=== PATIENT | male | born 1930 | race Caucasian/White ===

== ENCOUNTER 2018-04-24 21:24 | Inpatient (IN) | payer MEDICARE ==
[2018-04-24 21:45] LABS: Base Excess-Venous -8.2 mmol/L (0 (+/- 2.5)); Bicarbonate (HCO3v) 15.5 mmol/L (1.0-85.0); CO2 Tension (PvCO2) 28.8 mmHg (41.0-51.0); Hemoglobin - Calc 20.7 g/dL (12.0-18.0); Lactate 10.44 mmol/L (0.50-2.20); O2 Tension (PvO2) 66.3 mmHg (35.0-45.0); Potassium 3.6 mmol/L (3.4-4.7); T. Carbon Dioxide 16.4 mmol/L (1.0-85.0); pH (Venous) 7.339 (7.35-7.45)
[2018-04-24 21:48] LABS: Hemoglobin 19.5 g/dL (14.0-18.0); Mean Corpuscular HGB CONC 34.7 g/dL (32.0-36.0); Mean Corpuscular Hemoglobin 33.8 pg (27.0-31.0); Mean Corpuscular Volume 97.6 fL (78.0-98.0); Mean Platelet Volume 9.4 fL (7.4-10.4); Platelet Count 137 thou/uL (130-400); RBC Distribution Width 13.1 % (11.5-14.5); Red Blood Cell (RBC) Count 5.76 mill/uL (4.70-6.10)
[2018-04-24 21:51] LABS: Bilirubin Negative (Negative); Blood, Urine Moderate (Negative); Clarity CLEAR (Clear); Glucose, Urine (Dipstick) Negative (Negative); Leukocyte Negative (Negative); Nitrite Negative (Negative); Protein, Urine (Dipstick) Negative (Neg-Trace); Specific Gravity, Urine 1.006 (1.002-1.036); Urobilinogen 0.2 mg/dL (0.2-1.0); pH, Urine 7.5 (5.0-9.0)
[2018-04-24 21:52] LABS: Bacteria/HPF None Seen HPF (None Seen); Hyaline Casts/LPF 4-6 HYALINE CAST LPF (0-3 Hyaline); Pathc Cast-AUWi Flag 0.87 (0-2.49); Squamous Epithelial 0-3 HPF (0-3); WBC/HPF 0-3 HPF (0-3)
[2018-04-24 21:55] LABS: INR-International Normal Ratio 1.1; PTT 26.6 SEC (22.9-36.1); Prothrombin Time 14.1 SEC (12.0-14.7)
[2018-04-24 22:00] LABS: ALT (SGPT) 25 U/L (8-55); AST (SGOT) 35 U/L (5-34); Albumin 4.7 g/dL (3.4-4.8); Alkaline Phosphatase 86 U/L (40-150); Anion Gap 25 mmol/L (10-20); BUN (Urea Nitrogen) 22 mg/dL (8.4-25.7); Bilirubin, Total 1.1 mg/dL (0.2-1.2); Calc. Creatinine Clearance 0 mL/min (70-130); Calcium 9.3 mg/dL (7.8-10.44); Carbon Dioxide 13 mmol/L (23-31); Chloride 108 mmol/L (98-107); Estimated GFR-MDRD 30; Globulin 2.8 g/dL (2.4-3.5); Glucose 171 mg/dL (83-110); Potassium 3.9 mmol/L (3.5-5.1); Protein, Total 7.5 g/dL (5.8-8.1); Sodium 142 mmol/L (136-145)
[2018-04-24] MEDS ORDERED: Succinylcholine Chloride 20 MG/ML 10 ml SYRINGE FS ONE (22:00)
[2018-04-24 22:04] LABS: CKMB 4.7 ng/mL (0-6.6)
[2018-04-24 22:08] LABS: Band 16 % (5-11); Lymphocytes 17 % (21-51); MDiff Complete? YES; Monocytes 4 % (0-10); Neutrophil 56 % (42-75); Reactive Lymphocytes 7 % (0-10)
[2018-04-24 22:11] LABS: Troponin I 0.689 ng/mL (< 0.028)
[2018-04-24 22:52] LABS: pH, Arterial 7.28 (7.35-7.45)
--- NOTE | 2018-04-24 23:10 | RAD ---
AP VIEW CHEST: INDICATIONS: History of stroke. FINDINGS: The patient is intubated with the ET tube tip seen at the level of the thoracic inlet. A gastric cat heter is present, that projects below the left hemidiaphragm, beyond the field of view. There is car diomegaly with pulmonary vascular congestion. There is suggestion of small bilateral pleural effusio ns. No pneumothorax is evident. No acute osseous abnormality is noted. IMPRESSION: 1. Cardiomegaly with pulmonary vascular congestion and small bilateral pleural effusions, suggesting mild congestive heart failure. 2. Endotracheal tube and gastric catheter as above. POS: DEANDRE
[2018-04-24 23:18] LABS: Actual Bicarbonate (HCO3a) 18.9 mEq/L (22-28); Base Excess (BEa) -7.5 mEq/L (-2.0 to +3.0); CO2 Tension 41.5 mmHg (35.0-45.0); Hematocrit-ABG 36.6 % (42.0-52.0); O2 Tension (PaO2) 120.9 mmHg (> 60.0)
[2018-04-24 23:19] LABS: Analyzer IN Cardio ER; Calcium, Ionized 1.1 mmol/L (1.12-1.30); Puncture Site LBA
[2018-04-24 23:20] LABS: ALV-art Gradient 255.025 (0-20)
--- NOTE | 2018-04-24 23:38 | CT ---
NONCONTRAST CT BRAIN: INDICATIONS: An 87-year-old male, combative, vomiting, with concern for possible hemiplegia and expressive aphasia . COMPARISON: None. FINDINGS: There is generalized cerebral and cerebellar atrophy. There is mild chronic small vessel white matte r ischemic change. The septum pellucidum and third ventricle are midline. There is mild mucosal thi ckening within the ethmoid air cells. The patient is intubated. IMPRESSION: No acute intracranial abnormality. Findings were called to Dr. Stearns at 11:22 p.m. on 04/24/2018. CODE CR POS: DEANDRE
[2018-04-24] MEDS ORDERED: Norepinephrine 8 MG/0.9% NS 250 ML IVPB SCH (23:45)
[2018-04-24] MEDS ORDERED: Vancomycin HCl 1.5 GM in Sodium Chloride 0.9% 250 ML 300 ML IVPB SCH (23:45)
[2018-04-24] MEDS ORDERED: Octreotide Acetate 1,250 MCG in Sodium Chloride 0.9% 250 ML 250 ML IVPB SCH (23:45)
[2018-04-24] MEDS ORDERED: Ventilator Sedation Protocol 1 EACH FS SCH (23:47)
[2018-04-24] MEDS ORDERED: Lorazepam 2 MG/ML VIAL SLOW IVP PRN (23:48)
[2018-04-24] MEDS ORDERED: Propofol BOLUS 1,000 MG/100 ML VIAL IV PRN (23:48)
[2018-04-24] MEDS ORDERED: Fentanyl BOLUS 250 ML IVPB PRN (23:48)
[2018-04-24] MEDS ORDERED: Acetaminophen 650 MG Suppository PR PRN (23:48)
[2018-04-24] MEDS ORDERED: Propofol 1,000 MG/100 ML VIAL IV PRN (23:48)
--- NOTE | 2018-04-24 23:51 | CT ---
CT ABDOMEN AND PELVIS WITHOUT IV CONTRAST: INDICATIONS: Altered mental status with elevated white count and hypothermia. Concern for possible sepsis. COMPARISON: None. FINDINGS: There is bibasilar volume loss. A gastric catheter is seen projecting into the distal gastric body. The unopacified liver, pancreas, and adrenal glands are unremarkable. The unopacified spleen is unre markable. There is a 1 to 2 mm nonobstructing calculus within the superior pole and inferior pole le ft kidney. There are left-sided peripelvic cysts. Small, nonobstructing calculus seen within the ri ght mid kidney. No ureteral calculus or hydronephrosis is evident. The bladder is decompressed with a Pettit catheter. The prostate is mildly enlarged. There are scattered diverticula involving the c olon without evidence of active diverticulitis. The colon is largely decompressed. There is a judd l appendix in the right lower quadrant. The small bowel is of normal caliber. No drainable fluid collection is evident. There are fat-containing inguinal hernias. There is a right femoral central venous catheter projecti ng into the right common iliac vein. There is levoscoliosis of the lumbar spine. There is scattered degenerative and osteoarthritic mancini e. IMPRESSION: 1. No definite acute CT abnormality. 2. Bibasilar atelectasis. 3. Bilateral nephrolithiasis. 4. Colonic diverticulosis without evidence of active diverticulitis. 5. Pettit catheter. 6. Right femoral central venous catheter. 7. Other chronic findings as above. POS: [facility]
[2018-04-24] MEDS ORDERED: Ondansetron HCl/PF 4 MG/2 ML Vial IVP PRN (23:57)
[2018-04-25 00:09] LABS: Hemoglobin 14.2 g/dL (14.0-18.0)
[2018-04-25] MEDS ORDERED: VANCOMYCIN IVPB PRN (00:13)
[2018-04-25 00:59] LABS: Lactic Acid 2.6 mmol/L (0.5-2.2)
[2018-04-25 01:10] VITALS: BMI 28.0
[2018-04-25] MEDS: Sodium Chloride 0.9% 1,000 ML IV SCH ×3 (01:32→17:13)
[2018-04-25 03:27] LABS: Bilirubin Small (Negative); Blood, Urine Large (Negative); Clarity TURBID (Clear); Glucose, Urine (Dipstick) 100 mg/dL (Negative); Leukocyte Small (Negative); Nitrite Negative (Negative); Protein, Urine (Dipstick) 100 mg/dL (Neg-Trace); Specific Gravity, Urine 1.025 (1.002-1.036); Urobilinogen 0.2 mg/dL (0.2-1.0)
[2018-04-25 03:29] LABS: Bacteria/HPF None Seen HPF (None Seen); Hyaline Casts/LPF 7-10 HYALINE CAST LPF (0-3 Hyaline)
[2018-04-25 03:31] LABS: Pathc Cast-AUWi Flag 2.56 (0-2.49); Yeast-AUWi Flag 510.9 (0-25.0)
[2018-04-25 03:41] LABS: Other Casts/LPF 4-6 COARSE GRAN LPF (0-3 Hyaline)
[2018-04-25 03:42] LABS: RBC/HPF GREATER THAN 50-TNTC HPF (0-3); Renal Epithelial 0-3 HPF (0-3); Transitional Epithelial NONE SEEN HPF (0-3); Yeast-All Forms None Seen HPF (None Seen)
[2018-04-25 03:56] LABS: Band 27 % (5-11); Eosinophils 3 % (0-10); Hemoglobin 16.5 g/dL (14.0-18.0); Lymphocytes 9 % (21-51); MDiff Complete? YES; Mean Corpuscular HGB CONC 35.7 g/dL (32.0-36.0); Mean Corpuscular Hemoglobin 34.6 pg (27.0-31.0); Mean Corpuscular Volume 97.1 fL (78.0-98.0); Mean Platelet Volume 9.5 fL (7.4-10.4); Metamyelocyte 1 % (0-0); Monocytes 6 % (0-10); Neutrophil 52 % (42-75); PLT Morphology Comment Appears Decreased; Platelet Count 117 thou/uL (130-400); Reactive Lymphocytes 2 % (0-10); Red Blood Cell (RBC) Count 4.76 mill/uL (4.70-6.10)
[2018-04-25 04:10] LABS: Anion Gap 17 mmol/L (10-20); BUN (Urea Nitrogen) 22 mg/dL (8.4-25.7); Calc. Creatinine Clearance 32 mL/min (70-130); Calcium 7.9 mg/dL (7.8-10.44); Carbon Dioxide 18 mmol/L (23-31); Chloride 113 mmol/L (98-107); Estimated GFR-MDRD 31; Glucose 150 mg/dL (83-110); Potassium 3.8 mmol/L (3.5-5.1); Sodium 144 mmol/L (136-145)
[2018-04-25 04:24] LABS: Troponin I 1.318 ng/mL (< 0.028)
--- NOTE | 2018-04-25 06:41 | PDOC.PULCN ---
<Jonathan Longoria - Last Filed: 04/25/18 06:36> Pulmonology Consult: HPI - Date of Consult Date: 04/25/18 Time: 06:15 - Consult Details Reason for Consult: sepsis vs stroke vs NSTEMI vs GI bleed intubated Requesting Physician: susy - History of Present Illness HPI: History per chart review as family is not available at this time. This is an 87 yo male w/ PMH of HTN who came in with signs of stroke. Family found him in the bathtub with expressive aphasia and L sided weakness. Upon arrival to the ED the patient became combative and developed coffee-ground emesis. Ultimately he was sedated and intubated for his own safety. His BP was low and he was given 3L of NS and started on levophed drip. He was started on broad spectrum antibiotics. Pulmonology Consult: ROS - Review of Systems ROS unobtainable: due to endotracheal tube Pulmonology Consult: H Source: other (chart review) Past Medical History: HTN - Family History Pertinent family history: non-contributory per chart review - Social History Smoking Status: Other (not obtainable due to intubation) Pulmonology Consult: Meds - Medications MAR Reviewed: Yes Medications: Current Medications Acetaminophen (Tylenol) 650 mg MD Q4H PRN PRN Reason: Headache/Fever or Pain Fentanyl Citrate 2,000 mcg/ (Sodium Chloride) 100 mls @ 0 mls/hr IV INF OBDULIA; Per Protocol PRN Reason: Protocol Stop: 05/24/18 21:52 Pantoprazole Sodium 80 mg/ (Sodium Chloride) 100 mls @ 10 mls/hr IVP INF OBDULIA Midazolam HCl 100 mg/ Sodium (Chloride) 100 mls @ 0 mls/hr IVPB INF OBDULIA; Titrate PRN Reason: Protocol Octreotide Acetate 1,250 mcg/ (Sodium Chloride) 251.25 mls @ 5.02 mls/hr IVPB INF OBDULIA PRN Reason: 25 MCG/HR Fentanyl Citrate (Fentanyl Bolus) 250 mls @ 0 mls/hr IVPB PRN PRN; As Directed PRN Reason: Breakthrough pain/agitation Stop: 05/24/18 23:48 Norepinephrine Bitartrate (Levophed) 250 mls @ 0 mls/hr IVPB INF OBDULIA; Titrate PRN Reason: Protocol Sodium Chloride (Normal Saline 0.9%) 1,000 mls @ 120 mls/hr IV .Q8H20M OBDULIA Last Admin: 04/25/18 01:32 Dose: 1,000 mls Vancomycin HCl 1.25 gm/ Sodium (Chloride) 250 mls @ 166.667 mls/hr IVPB 2200 OBDULIA Lorazepam (Ativan) 2 mg SLOW IVP Q1H PRN PRN Reason: Breakthrough agitation Stop: 05/24/18 23:48 Miscellaneous Medication (Pharmacy To Dose) 1 each IVPB PRN PRN PRN Reason: RPH TO DOSE VANC Morphine Sulfate (Morphine Sulfate) 2 mg SLOW IVP Q1H PRN PRN Reason: BREAKTHROUGH PAIN/AGITATION Stop: 05/24/18 23:48 Ondansetron HCl (Zofran) 4 mg IVP Q6H PRN PRN Reason: Nausea/Vomiting Propofol (Diprivan) 1,000 mg IV INF PRN; Protocol PRN Reason: TO ACHIEVE GOAL RASS Stop: 05/24/18 23:48 Propofol (Diprivan Bolus) 20 mg IV Q5MIN PRN PRN Reason: BREAKTHROUGH AGITATION Stop: 05/24/18 23:48 - Allergies Allergies/Adverse Reactions: Allergies Allergy/AdvReac Type Severity Reaction Status Date / Time No Known Allergies Allergy Unverified 04/24/18 21:51 Pulmonology Consult: PE - Physical Exam Constitutional: NAD HEENT: moist MMs Cardiovascular: RRR, no significant murmur Respiratory: clear to auscultation anteriorly. negative: accessory muscle use, wheezes Gastrointestinal: soft, non-tender, positive bowel sounds Musculoskeletal: no edema, pulses present Deviation from normal: sedated, per nursing report moves both arms when coming off sedation Skin: no rash, cap refill <2 seconds Pulmonology Consult: Results - Labs Result Diagrams: 04/25/18 06:10 04/25/18 03:00 - ABG Interpretation ABG Results: POC Bicarbonate Calc 15.5 mmol/L (1.0-85.0) 04/24/18 21:39 ABG pH 7.28 (7.35-7.45) L 04/24/18 22:15 ABG pCO2 41.5 mmHg (35.0-45.0) 04/24/18 22:15 ABG O2 Sat Calc/Karlene 98.2 % (94.0-98.0) H 04/24/18 22:15 ABG Base Excess -7.5 mEq/L (-2.0 to +3.0) L 04/24/18 22:15 Pulmonology Consult: A/P - Time Time: 50% of the time was spent in coordination of care (as documented) at patient's floor/unit and/or counseling patient. Time with Patient: greater than 50 minutes - Plan Plan: Policy Intern note to follow This is a critically ill 87 yo M who presented with stroke symptoms. CT head showed no acute process. Now being worked up for sepsis, NSTEMI, GI Bleed. 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) - AMS on arrival to ED - now sedated, moving both arms when coming off sedation per nursing - Sedation: fentanyl, versed - Consider carotid dopper Resp (acute hypoxic resp failure) - Intubated - SIMV-VC TV 500, R 18, peep 5, O2 40% - maintaining o2 sat in high 90s - CXR shows mild pulmonary congestion CV (Elevated troponin) - trop 0.689, 1.318 trend - on levophed, still dependent on pressor this AM, titrating down - pulm congestion on CXR, consider Echo, BNP 30.4 - Cardiology consulted GI (coffe ground emesis) - 10ml coffee ground emesis from g tube this AM - dark emesis in the ED, octreotide and pantoprazole IV running - Hgb 16.5 this AM - GI consulted Nutrition - NPO Hematologic () - hgb 16.5, plt 117 /Renal (RAMIRO) - Cr 2.06, 39 ml urine output overnight - likely 2/2 intravascular depletion - 125 ml/hr NS Infection (Sepsis) - Blood culture, urine culture pending - vancomycin ordered, consider rocephin Endo () - Tubes: R Femoral Central line ET tube G tube Code status: full PPx: GI Bleed Diet: NPO Dispo: >2 days <Mario Mills - Last Filed: 04/25/18 07:49> Pulmonology Consult: HPI - History of Present Illness HPI: DEDAR MCDANIEL is a 87 year-old M Pulmonology Consult: Meds - Medications Medications: Current Medications Acetaminophen (Tylenol) 650 mg MD Q4H PRN PRN Reason: Headache/Fever or Pain Fentanyl Citrate 2,000 mcg/ (Sodium Chloride) 100 mls @ 0 mls/hr IV INF OBDULIA; Per Protocol PRN Reason: Protocol Stop: 05/24/18 21:52 Pantoprazole Sodium 80 mg/ (Sodium Chloride) 100 mls @ 10 mls/hr IVP INF OBDULIA Octreotide Acetate 1,250 mcg/ (Sodium Chloride) 251.25 mls @ 5.02 mls/hr IVPB INF OBDULIA PRN Reason: 25 MCG/HR Fentanyl Citrate (Fentanyl Bolus) 250 mls @ 0 mls/hr IVPB PRN PRN; As Directed PRN Reason: Breakthrough pain/agitation Stop: 05/24/18 23:48 Norepinephrine Bitartrate (Levophed) 250 mls @ 0 mls/hr IVPB INF OBDULIA; Titrate PRN Reason: Protocol Sodium Chloride (Normal Saline 0.9%) 1,000 mls @ 120 mls/hr IV .Q8H20M [facility] Last Admin: 04/25/18 01:32 Dose: 1,000 mls Vancomycin HCl 1.25 gm/ Sodium (Chloride) 250 mls @ 166.667 mls/hr IVPB 2200 OBDULIA Ceftriaxone Sodium 1 gm/ (Sodium Chloride) 100 mls @ 200 mls/hr IVPB Q24HR OBDULIA Sodium Chloride (Normal Saline 0.9%) 1,000 mls @ 999 mls/hr IV .Q1H1M OBDULIA Stop: 04/25/18 08:45 Lorazepam (Ativan) 2 mg SLOW IVP Q1H PRN PRN Reason: Breakthrough agitation Stop: 05/24/18 23:48 Miscellaneous Medication (Pharmacy To Dose) 1 each IVPB PRN PRN PRN Reason: RPH TO DOSE VANC Morphine Sulfate (Morphine Sulfate) 2 mg SLOW IVP Q1H PRN PRN Reason: BREAKTHROUGH PAIN/AGITATION Stop: 05/24/18 23:48 Ondansetron HCl (Zofran) 4 mg IVP Q6H PRN PRN Reason: Nausea/Vomiting Propofol (Diprivan) 1,000 mg IV INF PRN; Protocol PRN Reason: TO ACHIEVE GOAL RASS Stop: 05/24/18 23:48 Propofol (Diprivan Bolus) 20 mg IV Q5MIN PRN PRN Reason: BREAKTHROUGH AGITATION Stop: 05/24/18 23:48 Sodium Chloride (Flush - Normal Saline) 10 ml IVF Q12HR OBDULIA Sodium Chloride (Flush - Normal Saline) 10 ml IVF PRN PRN PRN Reason: Saline Flush Pulmonology Consult: Results - Labs Result Diagrams: 04/25/18 06:10 04/25/18 03:00 - ABG Interpretation ABG Results: POC Bicarbonate Calc 15.5 mmol/L (1.0-85.0) 04/24/18 21:39 ABG pH 7.39 (7.35-7.45) 04/25/18 07:10 ABG pCO2 29.1 mmHg (35.0-45.0) L 04/25/18 07:10 ABG O2 Sat Calc/Karlene 95.9 % (94.0-98.0) 04/25/18 07:10 ABG Base Excess -6.1 mEq/L (-2.0 to +3.0) L 04/25/18 07:10 Pulmonology Consult: A/P - Time Time: 50% of the time was spent in coordination of care (as documented) at patient's floor/unit and/or counseling patient. - Plan Plan: Addendum by Dr. Mills: Patient was seen, examined, and the entirety of the history and physical exam above was confirmed by myself. The patient seems to be in either septic or hypovolemic shock. He will be given a bolus of fluid to help increase his UOP. An echo and carotid doppler will be checked. Will check CK to evaluate for Rhabdo, since he was out working in the heat. We have extended his ABX to cover gram neg bugs. He needs to stay intubated until his BP is better. 50 minutes CC time
[2018-04-25 07:14] LABS: Actual Bicarbonate (HCO3a) 17.2 mEq/L (22-28); CO2 Tension 29.1 mmHg (35.0-45.0); O2 Tension (PaO2) 79.1 mmHg (> 60.0); pH, Arterial 7.39 (7.35-7.45)
[2018-04-25 07:15] LABS: Base Excess (BEa) -6.1 mEq/L (-2.0 to +3.0); Calcium, Ionized 1.1 mmol/L (1.12-1.30); Hemoglobin (Hb) 15.9 g/dL (14.0-18.0)
[2018-04-25 07:16] LABS: Puncture Site RB
[2018-04-25 07:17] LABS: ALV-art Gradient 169.725 (0-20)
[2018-04-25] MEDS ORDERED: Sodium Chloride 0.9% 1,000 ML IV SCH ×2 (07:45→11:15)
[2018-04-25 07:52] LABS: Critical Call Chem Troponin I RESULT DECREASING; Troponin I 0.889 ng/mL (< 0.028)
[2018-04-25] MEDS: cefTRIAXone\\ROCEPHIN 1 GM in Sodium Chloride 0.9% 100 ML IVPB SCH (08:08)
[2018-04-25] MEDS: Pantoprazole 80 MG in Sodium Chloride 0.9% 100 ML IVP SCH ×2 (09:14→18:48)
--- NOTE | 2018-04-25 09:44 | ULT ---
BILATERAL CAROTID DUPLEX ULTRASOUND: DATE: 04/25/18 HISTORY: TIA. TECHNIQUE: Ventura scale ultrasound with color flow and spectral Doppler imaging of the extracranial carotid artery systems performed. FINDINGS: No significant plaque formation or intimal wall thickening is seen. The peak systolic velocity in the right ICA measures 85 cm/second with an end-diastolic velocity of 7 cm/second and a systolic ratio of 0.71. The peak systolic velocity in the left ICA measures 90 cm/second with an end-diastolic velocity of 17 cm/second and a systolic ratio of 0.84. Flow in both vertebral arteries remains antegrade. IMPRESSION: No evidence of hemodynamically significant stenosis. POS: ANN
--- NOTE | 2018-04-25 11:05 | PDOC.PN ---
- Subjective Encounter Start Date: 04/25/18 Encounter Start Time: 11:02 Subjective: intubated, restless, follows directions - Objective Resuscitation Status: Resuscitation Status FULL:Full Resuscitation MAR Reviewed: Yes Vital Signs & Weight: Vital Signs (12 hours) Temp Pulse Resp BP Pulse Ox 04/25/18 10:54 62 92/41 L 04/25/18 10:00 18 04/25/18 08:00 98.9 F 60 18 100 04/25/18 07:04 60 102/41 L 04/25/18 07:00 98.9 F 04/25/18 06:00 18 04/25/18 04:00 98.6 F 18 04/25/18 01:33 98.5 F 56 L 18 100 04/25/18 01:00 98.5 F Weight Weight 195 lb 12.328 oz Most Recent Monitor Data Heart Rate from ECG 61 NIBP 88/39 NIBP BP-Mean 67 Respiration from ECG 18 SpO2 100 I&O: 04/24/18 04/25/18 04/26/18 06:59 06:59 06:59 Intake Total 1053.9 1000 Output Total 39 40 Balance 1014.9 960 Result Diagrams: 04/25/18 06:10 04/25/18 03:00 Phys Exam - Physical Examination Neck: no JVD Respiratory: clear to auscultation bilateral Cardiovascular: RRR, no significant murmur Gastrointestinal: soft, non-tender, positive bowel sounds Musculoskeletal: no edema Neurological: non-focal Dx/Plan (1) Sepsis Code(s): A41.9 - SEPSIS, UNSPECIFIED ORGANISM Status: Acute Qualifiers: Sepsis type: sepsis due to unspecified organism Qualified Code(s): A41.9 - Sepsis, unspecified organism (2) Acute kidney failure Status: Acute Qualifiers: Acute renal failure type: unspecified Qualified Code(s): N17.9 - Acute kidney failure, unspecified (3) Lactic acidosis Code(s): E87.2 - ACIDOSIS Status: Acute (4) NSTEMI (non-ST elevated myocardial infarction) Code(s): I21.4 - NON-ST ELEVATION (NSTEMI) MYOCARDIAL INFARCTION Status: Acute (5) Hypotension Status: Acute (6) GI bleeding Code(s): K92.2 - GASTROINTESTINAL HEMORRHAGE, UNSPECIFIED Status: Acute Qualifiers: GI bleed type/associated pathology: unspecified gastrointestinal hemorrhage type Qualified Code(s): K92.2 - Gastrointestinal hemorrhage, unspecified - Plan cont pressors, iv fluids -: stat ekg, cxr -: cont broad spectrum antibx -: no ASA due to GI bleeding -: ECHO, serial lab * .
--- NOTE | 2018-04-25 11:32 | CON ---
DATE OF CONSULTATION: 04/25/2018 CRITICAL CARE NOTE Thirty minutes critical care. HISTORY OF PRESENT ILLNESS: This patient is an 87-year-old gentleman who acutely became weak and hypotensive. The patient has no previous cardiac history. The patient has a history of hypertension. According to the patient' s he was in his usual state of health when yesterday he acutely became extremely weak and diaphoretic. The patient was brought to the emergency room and was emergently intubated. PAST MEDICAL HISTORY: hypertension. PAST SURGICAL HISTORY: SOCIAL HISTORY: Nonsmoker. ALLERGIES: No known drug allergies. MEDICATIONS ON ADMISSION: Lisinopril 10 daily. PHYSICAL EXAMINATION: GENERAL: This is an intubated gentleman who was responsive. VITAL SIGNS: Blood pressure 101/40 on Levophed. NECK: Showed no jugular vein distention. LUNGS: Coarse breath sounds bilateral. HEART: Regular rate and rhythm, normal S1, S2, no murmurs. ABDOMEN: Distended. EXTREMITIES: No edema. LABORATORY DATA: Sodium 144, potassium 3.8, chloride 113, bicarbonate 18, BUN 22, creatinine is 2.0, glucose is 150, troponin was, 1.3. BNP was 30. His EKG reveals normal sinus rhythm, normal ECG. IMPRESSION: 1. Septic shock. 2. Gastrointestinal hemorrhage. 3. Elevated troponin level. 4. Renal insufficiency. 5. History of hypertension. This gentleman presents in septic shock. The patient is on Levophed and being hydrated. From a cardiac standpoint, the electrocardiogram is unremarkable. There is no evidence of congestive heart failure. I expect the elevated troponin level is secondary to demand ischemia and acute renal failure. I would continue IV antibiotics and hydration. We will check the patient's echocardiogram. We will follow this patient with you through his hospitalization. TERRI
--- NOTE | 2018-04-25 12:23 | HP ---
CODE STATUS: FULL CODE. PRIMARY CARE PHYSICIAN: Erica Coleman M.D. TIME OF EVALUATION: 1:30 a.m. CHIEF COMPLAINT: Change in mental status. HISTORY OF PRESENT ILLNESS: Information is gathered from family and ER staff since patient is intuba heidi and sedated. This is an old 87-year-old male patient with past medical history of health, no significant medical h istory, came to the hospital after having an episode of being in his bathtub and family found him in distress, incontinent of urine and stools, some report from paramedics report hemiplegia and expressi ve aphasia, but the patient was oriented, and cooperative. In the ER, the patient became combative, vomiting. The patient had blood in the mouth, suspected GI bleeding. Patient was intubated for airw ay protection, will have a clear trigger for his symptoms, no alleviating factors. Symptoms are gee re. REVIEW OF SYSTEMS: Unable to obtain, patient is sedated. PAST MEDICAL HISTORY: The patient has no significant past medical history. DRUG ALLERGIES: No known drug allergies. REPORTED MEDICATIONS: No medications. PHYSICAL EXAMINATION: VITAL SIGNS: At presentation, blood pressure 106/63 with heart rate 85, respiratory rate was 33. Ox ygen sat region was 97% on room air. Patient was intubated for airway protection. The patient is ob tunded and going to shock, needing vasopressors to keep blood pressure on the right level. GENERAL APPEARANCE: Patient is sedated, intubated. HEENT: Eyes, normal conjunctivae. Moist oral mucosa, anicteric. NECK: No JVD. RESPIRATORY: Bilateral air entry. No rales, no wheezing. Symmetric expansion. CARDIOVASCULAR: Normal rate, regular rhythm. No murmurs, no gallop, no edema. ABDOMEN: Soft, normal bowel sounds. MUSCULOSKELETAL: Baseline range of motion and strength. No tenderness. SKIN: . NEUROLOGIC: The patient is sedated and intubated. Unable to fully explore. PSYCHIATRIC: Unable to explore. EKG was reviewed. The patient has normal sinus rhythm with a rate of 91 with MI 170, QRS 88, QT franc ected 435. Normal EKG. LABORATORY DATA: Reviewed. The patient has white count 23, hemoglobin 14, MCV 97, platelet count 13 7. Coagulation: PT 14.1, INR 1.1, PTT 26.6. Blood gas was done, pH was 7.28, pCO2 of 41, pO2 of 14 0, this was done on SIMV at the rate of 18, inspired oxygen 60, tidal volume 500, pressure support of 10, PEEP 5. Chemistry: Sodium 142, potassium 3.9, chloride 108, carbon dioxide 13, anion gap 25, B UN 22, creatinine 2.0, previous creatinine was 1.27, glucose 171, calcium 9.3. Troponin 0.6, AST 35. UA was done and was negative. ASSESSMENT AND PLAN: The patient will be placed in the hospital with the following medical problems: 1. Acute encephalopathy, unclear etiology, CT head was negative, we will monitor after extubation. 2. Elevated troponin 0.6, we will trend, and likely secondary to mismatch ischemia, we will treat un derlying condition. 3. Lactic acidosis of unclear etiology, patient was combative, has been in shock. We will treat und erlying condition. Second lactic acid was 2.6. 4. Hyperglycemia. Blood sugar 171, will be associated with acute physical distress. The patient irizarry s no history of diabetes. 5. Acute kidney injury. The patient has a creatinine of 2.08, last was 1.2 on previous admissions, we will hydrate, we will monitor, we will treat accordingly. We will try to avoid nephrotoxins. 6. Acute anion gap metabolic acidosis, likely secondary to lactic acidosis, patient has been intubat ed, compensated. We will monitor, we will treat accordingly. 7. Possible underlying sepsis. The patient respiratory failure. The patient has a white coun t of 23, hypotensive, has been started on broad spectrum antibiotics, culture has been sent, we will monitor, we will treat accordingly. 8. Septic shock. Patient has been on vasopressors due to unable to keep systolic blood pressure und er 190 or MAP more than 65, will be placed in ICU. Antibiotics will be started. Follow cultures. We will adjust treatment as needed. We will consult Pulmonary for assistance with this patient. 9. Deep venous thrombosis prophylaxis. Critical care time was more than 35 minutes spent at bedside assessment, reviewing evaluation of jason rds, and family meeting, coordination of care. CT head showed no acute intracranial abnormalities. Chest x-ray showed cardiomegaly with pulmonary v ascular congestion with small bilateral pleural effusion, suggesting mild congestive heart failure. gastric catheter as above. Abdominal and pelvis CT, no definite acute CT abnormalities. Bibas ilar atelectasis, bilateral nephrolithiasis. Colonic diverticulosis without evidence of acute divert iculitis. Pettit catheter, right femoral central venous catheter.
[2018-04-25] MEDS: fentaNYL Citrate/PF 2,000 MCG in Sodium Chloride 0.9% 60 ML IV SCH (13:56)
--- NOTE | 2018-04-25 15:11 | PQF ---
CLINICAL DOCUMENTATION IMPROVEMENT CLARIFICATION FORM: ICD-10 Updated PLEASE DO AN ADDENDUM TO THE PROGRESS NOTE WITH ANY DOCUMENTATION UPDATES OR ADDITIONS AND CARRY THROUGH TO DC SUMMARY. THANK YOU. DATE: 04/25/18 ATTN: DR. PITTS Please exercise your independent, professional judgment in responding to the clarification form. Clinical indicators are provided on the bottom of this form for your review Please check appropriate box(s): AMI TYPE: [ x ] NSTEMI [ ] NSTEMI TYPE 2 [ ] DEMAND ISCHEMIA [ ] Other [ ] Other diagnosis [ ] Unable to determine In addition, please specify: Present on Admission (POA): [ x] Yes [ ] No [ ] Unable to determine CLINICAL INDICATORS - SIGNS / SYMPTOMS / LABS CONSULTATION NOTE 04/25: "I EXPECT THE ELEVATED TROPONIN IS SECONDARY TO DEMAND ISCHEMIA AND ACUTE RENAL FAILURE." PROGRESS NOTE 04/25: "NSTEMI" TROPONIN 0.689 / 1.318 / 0.889 RISKS: SEPSIS RENAL FAILURE TREATMENT: CRITICAL CARE MONITORING SERIAL LABS CARDIOLOGY CONSULT ECHOCARDIOGRAM [employer] Winform Viewer(This form is maintained as a part of the permanent medical record) 2014 [employer]. All Rights Reserved [email or web address] Office: [phone] [facility]S HOSPITALArjun
--- NOTE | 2018-04-25 15:55 | RAD ---
CHEST ONE VIEW: 04/25/18 HISTORY: Dyspnea. COMPARISON: 04/24/18 FINDINGS: The cardiac silhouette is magnified by projection. Pulmonary vasculature is upper limits of normal. T here is apparent enlargement of the aortic arch overlying the left main stem bronchus, up to 7.3 cm. Patchy bibasilar infiltrates. Lines and tubes are unchanged in position. IMPRESSION: Enlarged aortic arch. Clinical correlation regarding other signs and symptoms of acute aortic dissect ion or other mediastinal acute abnormality is required. This could be evaluated with CT chest for bet ter characterization. Findings were called to Aliyah at the office of Dr. Mills at 1504 hours. Code CR POS: [facility]
[2018-04-25 18:35] LABS: Hemoglobin 13.5 g/dL (14.0-18.0)
[2018-04-25] MEDS: Vancomycin HCl 1.25 GM in Sodium Chloride 0.9% 250 ML 250 ML IVPB SCH (20:42)
[2018-04-26] MEDS: Sodium Chloride 0.9% 1,000 ML IV SCH ×3 (02:00→20:19)
--- NOTE | 2018-04-26 03:02 | CON ---
DATE OF CONSULTATION: 04/25/2018 CHIEF COMPLAINT: Vomited blood. HISTORY OF PRESENT ILLNESS: Mr. Arreola is an 87-year-old man who was having normal day yesterday and in the morning. He works out in the garden for a couple hours and then ate lunch and did fine. Gaudencio evening, he went in for hot bath and then his heard a loud noise in the bathroom, she went and found him standing in the bathtub holding onto rails, shaking and somewhat confused. He had a bowel movement which was brown in the bathtub. He was then taken to the emergency room. In transit, he r eportedly threw up some dark red material. He had an NG tube placed that reportedly returned some co ffee ground material. Today, there is more of a greenish output from the NG tube. He was intubated and he has been given broad spectrum antibiotics for sepsis. He has required Levophed for blood pres sure support. He has had no stool output since admission to the intensive care unit. His is wi th him now and reports that he does take aspirin once daily in addition to a couple of Jenny-Denver t wice daily for indigestion. His believes he had a colonoscopy around 4 years ago. PAST MEDICAL HISTORY: I performed colonoscopy for him in 02/2007. I removed a small adenoma at that time. We sent a reminder in 2011 that was time to repeat the colonoscopy and his believes that he did actually have one possibly at [facility], but she is unsure who did that procedure. PAST MEDICAL HISTORY: Hypertension. He had cellulitis treated with antibiotics in the past and this was complicated by Clostridium difficile infection. PAST SURGICAL HISTORY: Colonoscopy. FAMILY HISTORY: Negative for GI malignancy. SOCIAL HISTORY: No alcohol, tobacco, or drugs. ALLERGIES: No known drug allergies. MEDICATIONS PRIOR TO ADMISSION: Lisinopril 10 mg daily, aspirin daily, and Jenny-Denver 2 daily with aspirin. REVIEW OF SYSTEMS: Not obtainable as the patient is sedated on the vent. He is lightly sedated wake s up when stimulated. He denies abdominal pain with palpation of his abdomen. PHYSICAL EXAMINATION: VITAL SIGNS: Blood pressure 115/57, pulse 65, oxygen saturation 98%, he has been afebrile. GENERAL: He is in no acute distress. He is lightly sedated on the vent. HEENT: His eyes have no scleral icterus. Oropharynx has an endotracheal tube in place. NECK: No cervical or supraclavicular lymphadenopathy. LUNGS: Clear to auscultation bilaterally. HEART: Regular rate and rhythm. ABDOMEN: Soft. There is no guarding. His bowel sounds are present. EXTREMITIES: No lower extremity edema. RECTAL: Reveals a possible polyp at the tip of my fingertip. There is no stool in the rectal vault. LABORATORY DATA: White blood cell count 33, hemoglobin is 13.5 down from 19.5 on presentation. Plat elets 117. INR 1.1. Creatinine 2.06. Lactate was 10.4. CK 782. Troponin 1.3. Liver tests on pre sentation, bilirubin 1.1, AST 35, ALT 25, alkaline phosphatase 86. IMPRESSION: 1. Septic shock with lactic acidosis and acute renal failure. He is intubated and on pressors, but doing better. He is on broad spectrum antibiotics. 2. Reported hematemesis. He does not have evidence of ongoing bleeding. His hemoglobin was markedl y elevated with severe hemoconcentration on presentation and is decreased to 13.5. He has no stool i n the rectal vault and he has light greenish output from the NG tube now. He likely had gastritis re lated to sepsis; however, peptic ulcer or other process is possible given that he has been on aspirin and Jenny-Denver with aspirin. 3. Abnormal digital rectal exam. There is possible polyp in the rectum by digital exam. There is n o obvious stool in the vault to indicate this is adherent stool. The last colonoscopy, I have docume nted this from 2006 at which time small adenomas removed. His believes and other one was done a t the [facility] around 4 years ago. We will request those records. RECOMMENDATIONS: 1. Continue pantoprazole. 2. We should be able to stop octreotide at this point. His platelet count was a little bit low, but otherwise there are no overt signs of cirrhosis and he has had no chronic alcohol use history or his tory of chronic liver disease. It would be reasonable recheck his liver tests as he could have ische ishmael hepatopathy with the severe hypotension and dehydration. 3. He should eventually undergo EGD and colonoscopy; however, this does not necessarily need to be d one during this acute hospitalization for sepsis. We will follow him clinically and follow his blood counts.
[2018-04-26 04:32] LABS: Anion Gap 11 mmol/L (10-20); BUN (Urea Nitrogen) 24 mg/dL (8.4-25.7); Calc. Creatinine Clearance 34 mL/min (70-130); Calcium 7.3 mg/dL (7.8-10.44); Carbon Dioxide 20 mmol/L (23-31); Chloride 117 mmol/L (98-107); Estimated GFR-MDRD 33; Glucose 136 mg/dL (83-110); Potassium 3.9 mmol/L (3.5-5.1); Sodium 144 mmol/L (136-145)
[2018-04-26 04:40] LABS: ALT (SGPT) 17 U/L (8-55); AST (SGOT) 28 U/L (5-34); Alkaline Phosphatase 41 U/L (40-150); Bilirubin, Direct 0.5 mg/dL (0.1-0.3); Bilirubin, Total 1.6 mg/dL (0.2-1.2); Protein, Total 4.8 g/dL (5.8-8.1)
[2018-04-26 05:03] LABS: #Eosinphils 0.4 thou/uL (0.0-0.7); #Lymphocytes 3.5 thou/uL (1.20-3.40); #Monocytes 0.5 thou/uL (0.11-0.59); #Neutrophils 7.7 thou/uL (1.40-6.50); %Basophils 0.3 % (0.0-1.0); %Eosinophils 3.4 % (0.0-10.0); %Lymphocytes 28.8 % (21.0-51.0); %Monocytes 4.4 % (0.0-10.0); Hemoglobin 12.7 g/dL (14.0-18.0); Mean Corpuscular HGB CONC 35.5 g/dL (32.0-36.0); Mean Corpuscular Hemoglobin 34.9 pg (27.0-31.0); Mean Corpuscular Volume 98.3 fL (78.0-98.0); Mean Platelet Volume 9.6 fL (7.4-10.4); Platelet Count 62 thou/uL (130-400); Red Blood Cell (RBC) Count 3.63 mill/uL (4.70-6.10); White Blood Cell (WBC) Count 12.3 thou/uL (4.8-10.8)
[2018-04-26 07:02] LABS: Actual Bicarbonate (HCO3a) 18.8 mEq/L (22-28); CO2 Tension 31.2 mmHg (35.0-45.0); O2 Tension (PaO2) 70.3 mmHg (> 60.0)
[2018-04-26 07:03] LABS: Calcium, Ionized 1.1 mmol/L (1.12-1.30); Hemoglobin (Hb) 12.8 g/dL (14.0-18.0); Puncture Site RR
[2018-04-26] MEDS: fentaNYL Citrate/PF 2,000 MCG in Sodium Chloride 0.9% 60 ML IV SCH (07:05)
[2018-04-26] MEDS: cefTRIAXone\\ROCEPHIN 1 GM in Sodium Chloride 0.9% 100 ML IVPB SCH (08:34)
--- NOTE | 2018-04-26 09:21 | PRG ---
DATE OF SERVICE: 04/26/2018 SUBJECTIVE: Mr. Arreola is awake, alert, follows commands. He remains intubated on mechanical ventil ation. PHYSICAL EXAMINATION: VITAL SIGNS: Temperature 99.1, pulse 62, blood pressure 102/73, O2 saturation 96%. A 24-hour intake is 4466, output 729. HEENT: Unremarkable. NECK: No adenopathy or JVD. CHEST: Fairly clear to auscultation without wheezing or rhonchi. CARDIOVASCULAR: S1, S2 regular. There is no murmur, rub or gallop. ABDOMEN: Soft, nontender, nondistended. EXTREMITIES: No clubbing, cyanosis, or edema. LABORATORY DATA: Sodium 144, potassium 3.9, chloride 117, CO2 20, BUN 24, creatinine 1.9, glucose 13 6, troponin 0.14. Albumin is 3.0. PH 7.40, pCO2 31, pO2 70 on SIMV rate 18, tidal volume 500, PEEP 5, pressure support 10, FiO2 30%. White blood cell count 12.3, hematocrit 35.7, platelet count 62. His cultures show no growth to date. ASSESSMENT: 1. Acute respiratory failure requiring mechanical ventilation. 2. Volume depletion. 3. Possible underlying sepsis, although clear source not identified at this time. 4. Enlarged aorta on chest x-ray, which will require a CT scan eventually towards discharge. 5. Azotemia, which has been improved by hydration. PLAN: 1. Extubate. 2. Continue antibiotics. 3. Decrease IV fluids. 4. Updated family yesterday.
--- NOTE | 2018-04-26 11:18 | PDOC.PN ---
- Subjective Encounter Start Date: 04/26/18 Encounter Start Time: 11:17 Subjective: post extubation, weak OW no CO - Objective Resuscitation Status: Resuscitation Status FULL:Full Resuscitation MAR Reviewed: Yes Vital Signs & Weight: Vital Signs (12 hours) Temp Pulse Resp BP Pulse Ox 04/26/18 08:05 97 04/26/18 08:00 10 L 04/26/18 07:36 99.1 F 63 9 L 94 L 04/26/18 07:30 75 121/63 04/26/18 07:22 61 111/57 L 04/26/18 07:00 99.1 F 04/26/18 06:00 18 04/26/18 04:00 99.2 F 18 04/26/18 02:00 18 04/25/18 23:36 18 Weight Admit Weight 195 lb 12.32 oz Weight 195 lb 12.32 oz Most Recent Monitor Data Heart Rate from ECG 62 NIBP 123/61 NIBP BP-Mean 74 Respiration from ECG 14 SpO2 100 I&O: 04/25/18 04/26/18 04/27/18 06:59 06:59 06:59 Intake Total 1053.9 4466.0 561.0 Output Total 39 729 260 Balance 1014.9 3737.0 301.0 Result Diagrams: 04/26/18 03:34 04/26/18 03:34 Phys Exam - Physical Examination Neck: no JVD basilar rales, OW clear Cardiovascular: no significant murmur Gastrointestinal: soft, positive bowel sounds mild anasarca Dx/Plan (1) Sepsis Code(s): A41.9 - SEPSIS, UNSPECIFIED ORGANISM Status: Acute Qualifiers: Sepsis type: sepsis due to unspecified organism Qualified Code(s): A41.9 - Sepsis, unspecified organism (2) Acute kidney failure Status: Acute Qualifiers: Acute renal failure type: unspecified Qualified Code(s): N17.9 - Acute kidney failure, unspecified (3) Lactic acidosis Code(s): E87.2 - ACIDOSIS Status: Acute (4) NSTEMI (non-ST elevated myocardial infarction) Code(s): I21.4 - NON-ST ELEVATION (NSTEMI) MYOCARDIAL INFARCTION Status: Acute (5) Hypotension Status: Acute (6) GI bleeding Code(s): K92.2 - GASTROINTESTINAL HEMORRHAGE, UNSPECIFIED Status: Acute Qualifiers: GI bleed type/associated pathology: unspecified gastrointestinal hemorrhage type Qualified Code(s): K92.2 - Gastrointestinal hemorrhage, unspecified - Plan WBC down to 13k from 33k. C&S neg. 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
[2018-04-26] MEDS ORDERED: Pantoprazole 80 MG, Admixture Fee 1 EACH in Sodium Chloride 0.9% 100 ML IVP SCH (12:30)
--- NOTE | 2018-04-26 14:54 | PRG ---
DATE OF SERVICE: 04/26/2018 SUBJECTIVE: Mr. Arreola has had no further overt bleeding. He has been extubated today and has no ac mi'kmaq complaints. OBJECTIVE: His abdomen is soft and nontender, nondistended. Bowel sounds are present. LABORATORY DATA: His hemoglobin is stable at 12.7. IMPRESSION: 1. Hematemesis was likely secondary to his acute sepsis episode with gastritis and unlikely is from ongoing acute significant blood loss. He has had some non-steroidal antiinflammatory drug use and pe ptic ulcers possible. 2. Abnormal digital rectal exam with a question of a polyp at the tip of my fingertip on exam. RECOMMENDATIONS: 1. He should be able to switch over to oral proton pump inhibitor. 2. He should follow up in GI clinic in 3-4 weeks, at which point we can reevaluate his clinical stat us, as ideally he would undergo colonoscopy to evaluate the abnormal digital exam. Followup EGD coul d be performed at that time as well. 3. I will sign off for now. Please call if GI can be of assistance.
[2018-04-26] MEDS: Vancomycin HCl 1.25 GM in Sodium Chloride 0.9% 250 ML 250 ML IVPB SCH (21:03)
[2018-04-26] MEDS ORDERED: Vancomycin HCl 500 MG in Sodium Chloride 0.9% 100 ML IVPB SCH (23:00)
[2018-04-27 04:57] LABS: #Eosinphils 0.3 thou/uL (0.0-0.7); #Lymphocytes 2.2 thou/uL (1.20-3.40); #Monocytes 0.5 thou/uL (0.11-0.59); %Basophils 0.4 % (0.0-1.0); %Eosinophils 3.8 % (0.0-10.0); %Lymphocytes 24.6 % (21.0-51.0); %Monocytes 5.2 % (0.0-10.0); %Neutrophils 65.9 % (42.0-75.0); Hemoglobin 11.7 g/dL (14.0-18.0); Mean Corpuscular HGB CONC 35.2 g/dL (32.0-36.0); Mean Corpuscular Hemoglobin 34.8 pg (27.0-31.0); Mean Corpuscular Volume 98.9 fL (78.0-98.0); Platelet Count 43 thou/uL (130-400); RBC Distribution Width 12.8 % (11.5-14.5); Red Blood Cell (RBC) Count 3.35 mill/uL (4.70-6.10)
[2018-04-27 05:01] LABS: Anion Gap 9 mmol/L (10-20); BUN (Urea Nitrogen) 18 mg/dL (8.4-25.7); Calc. Creatinine Clearance 40 mL/min (70-130); Calcium 7.6 mg/dL (7.8-10.44); Carbon Dioxide 22 mmol/L (23-31); Chloride 118 mmol/L (98-107); Estimated GFR-MDRD 40; Glucose 110 mg/dL (83-110); Potassium 3.9 mmol/L (3.5-5.1); Sodium 145 mmol/L (136-145)
--- NOTE | 2018-04-27 08:00 | PDOC.PN ---
- Subjective Encounter Start Date: 04/27/18 Encounter Start Time: 07:57 Subjective: alert, no chest pain, sob, etc - Objective Resuscitation Status: Resuscitation Status FULL:Full Resuscitation MAR Reviewed: Yes Vital Signs & Weight: Vital Signs (12 hours) Temp Pulse Resp Pulse Ox 04/27/18 06:48 99 04/27/18 04:00 98.9 F 04/27/18 00:12 98 04/27/18 00:00 98.7 F 04/26/18 20:00 98.0 F 62 22 H 100 Weight Admit Weight 195 lb 12.32 oz Weight 195 lb 12.32 oz Most Recent Monitor Data Heart Rate from ECG 51 NIBP 117/63 NIBP BP-Mean 100 Respiration from ECG 15 SpO2 100 I&O: 04/26/18 04/27/18 04/28/18 06:59 06:59 06:59 Intake Total 4466.0 4618.0 Output Total 729 1430 Balance 3737.0 3188.0 Result Diagrams: 04/27/18 04:40 04/27/18 04:40 Phys Exam - Physical Examination Neck: no JVD Respiratory: clear to auscultation bilateral Cardiovascular: RRR, no significant murmur Gastrointestinal: soft, positive bowel sounds Musculoskeletal: no edema Dx/Plan (1) Sepsis Code(s): A41.9 - SEPSIS, UNSPECIFIED ORGANISM Status: Acute Qualifiers: Sepsis type: sepsis due to unspecified organism Qualified Code(s): A41.9 - Sepsis, unspecified organism (2) Acute kidney failure Status: Acute Qualifiers: Acute renal failure type: unspecified Qualified Code(s): N17.9 - Acute kidney failure, unspecified (3) Lactic acidosis Code(s): E87.2 - ACIDOSIS Status: Acute (4) NSTEMI (non-ST elevated myocardial infarction) Code(s): I21.4 - NON-ST ELEVATION (NSTEMI) MYOCARDIAL INFARCTION Status: Acute (5) Hypotension Status: Acute Qualifiers: Hypotension type: unspecified hypotension type Qualified Code(s): I95.9 - Hypotension, unspecified (6) GI bleeding Code(s): K92.2 - GASTROINTESTINAL HEMORRHAGE, UNSPECIFIED Status: Acute Qualifiers: GI bleed type/associated pathology: unspecified gastrointestinal hemorrhage type Qualified Code(s): K92.2 - Gastrointestinal hemorrhage, unspecified (7) HTN (hypertension) Code(s): I10 - ESSENTIAL (PRIMARY) HYPERTENSION Status: Acute Qualifiers: Hypertension type: essential hypertension Qualified Code(s): I10 - Essential (primary) hypertension - Plan transfer to tele -: cont protonix po -: discuss wit cardiology -: blood, urine C&S neg- no etiology for sepsis syndrome found- cont rocephin * .
--- NOTE | 2018-04-27 08:02 | PRG ---
DATE OF SERVICE: 04/27/2018 Mr. Arreola was successfully extubated yesterday, appears to be doing quite well this morning. PHYSICAL EXAMINATION: VITAL SIGNS: Temperature is 98.9, pulse 55, blood pressure 121/47, 24-hour intake 4618, output 1430. HEENT: Pupils react. Sclerae anicteric. Oropharynx clear. NECK: No adenopathy or JVD. LUNGS: A few crackles in both bases. CARDIAC: S1, S2, slightly bradycardic. No murmur. ABDOMEN: Soft, nontender, nondistended. EXTREMITIES: No clubbing, cyanosis, or edema. He has a right femoral triple lumen catheter in place . LABORATORY DATA: Sodium 145, potassium 3.9, chloride 118, CO2 of 22, BUN 18, creatinine 1.6, glucose 110, calcium 7.6. White blood cell count 9, hematocrit 33.2, platelet count is 43. ASSESSMENT: 1. Status post respiratory failure - in talking to him I am wondering if this was not all heat exhau stion. 2. Gastritis. 3. Status post respiratory failure. 4. Thrombocytopenia. 5. Possibly dilated aortic bulb. PLAN: 1. Once his creatinine comes back down to a reasonable level we need to get a CT of the chest with benjamín serrano. I would wait another day or 2 for the creatinine to reset level. 2. In regard to the thrombocytopenia, I do not see anything specific that could be leading to thromb ocytopenia in his medication regimen. This needs to be trended. 3. Consult Physical Therapy.
[2018-04-27] MEDS: Sodium Chloride 0.9% 1,000 ML IV SCH (08:40)
[2018-04-27] MEDS: cefTRIAXone\\ROCEPHIN 1 GM in Sodium Chloride 0.9% 100 ML IVPB SCH (08:44)
[2018-04-27] MEDS: Sodium Chloride 0.45% 1,000 ML IV SCH ×2 (12:06→22:56)
[2018-04-27] MEDS ORDERED: Vancomycin HCl 1.75 GM in Sodium Chloride 0.9% 500 ML IVPB SCH (22:00)
[2018-04-28 05:28] LABS: #Eosinphils 0.3 thou/uL (0.0-0.7); #Lymphocytes 1.8 thou/uL (1.20-3.40); #Monocytes 0.4 thou/uL (0.11-0.59); #Neutrophils 5.9 thou/uL (1.40-6.50); %Basophils 0.3 % (0.0-1.0); %Lymphocytes 21.2 % (21.0-51.0); %Monocytes 4.6 % (0.0-10.0); Hemoglobin 12.3 g/dL (14.0-18.0); Mean Corpuscular HGB CONC 35.3 g/dL (32.0-36.0); Mean Corpuscular Hemoglobin 34.3 pg (27.0-31.0); Mean Corpuscular Volume 97.1 fL (78.0-98.0); Mean Platelet Volume 9.4 fL (7.4-10.4); Platelet Count 51 thou/uL (130-400); RBC Distribution Width 12.7 % (11.5-14.5); Red Blood Cell (RBC) Count 3.59 mill/uL (4.70-6.10); White Blood Cell (WBC) Count 8.5 thou/uL (4.8-10.8)
[2018-04-28 05:30] LABS: Anion Gap 10 mmol/L (10-20); BUN (Urea Nitrogen) 16 mg/dL (8.4-25.7); Calc. Creatinine Clearance 47 mL/min (70-130); Calcium 7.9 mg/dL (7.8-10.44); Carbon Dioxide 20 mmol/L (23-31); Chloride 115 mmol/L (98-107); Estimated GFR-MDRD 47; Glucose 96 mg/dL (83-110); Potassium 3.7 mmol/L (3.5-5.1); Sodium 141 mmol/L (136-145)
--- NOTE | 2018-04-28 12:28 | PRG ---
DATE OF SERVICE: 04/28/2018 The patient feels better. He is starting to work with the therapist. PHYSICAL EXAMINATION: VITAL SIGNS: On exam his temperature is 98.2, pulse 50, respiration 16, O2 sat 93% on room air, bloo d pressure 162/84. HEENT: Unremarkable. NECK: No JVD. LUNGS: Clear without wheezing. CARDIAC: S1, S2, slightly bradycardic. ABDOMEN: Soft, obese, nontender. EXTREMITIES: Some bruising on his arms are noted. LABORATORY DATA: White blood cell count 8.5, hematocrit 34.9, platelet count 51. Sodium 141, potass ium 3.7, chloride 115, CO2 20, BUN 16, creatinine 1.4, glucose 96. Gram positive rods came in with t he central line in the right common femoral vein - this is probably a contamination on the draw of e culture. ASSESSMENT: 1. Status post respiratory failure. I think this may have been heat exhaustion. 2. Gastritis. 3. Mild rhabdomyolysis. 4. Thrombocytopenia. 5. Possibly dilated aortic bulb. 6. Renal insufficiency. PLAN: At some point, he is going to need a CT of the chest with contrast once his renal dysfunction resolves. Alternatively, he could have an MRI/MRA. His pulmonary status is currently stable. His c entral line has been removed.
[2018-04-28] MEDS: cefTRIAXone\\ROCEPHIN 1 GM in Sodium Chloride 0.9% 100 ML IVPB SCH (12:36)
--- NOTE | 2018-04-28 16:07 | PDOC.PN ---
- Subjective Encounter Start Date: 04/28/18 Encounter Start Time: 07:40 Pt seen for followup re: sepsis. Denies chest pain. Reports generalized weakness. - Objective Resuscitation Status: Resuscitation Status FULL:Full Resuscitation MAR Reviewed: Yes Vital Signs & Weight: Vital Signs (12 hours) Temp Pulse Pulse Pulse Resp BP BP 04/28/18 15:26 97.9 F 59 L 18 04/28/18 11:46 98.2 F 52 L 16 04/28/18 10:16 55 L 65 153/88 H 160/83 H 04/28/18 08:10 98.1 F 56 L 16 04/28/18 07:51 98.1 F 56 L 16 BP Pulse Ox 04/28/18 15:26 160/85 H 93 L 04/28/18 11:46 162/84 H 93 L 04/28/18 10:16 04/28/18 08:10 92 L 04/28/18 07:51 152/89 H 92 L Weight Admit Weight 195 lb 12.32 oz Weight 195 lb 12.32 oz Most Recent Monitor Data Heart Rate from ECG 53 NIBP 119/49 NIBP BP-Mean 97 Respiration from ECG 16 SpO2 98 I&O: 04/27/18 04/28/18 04/29/18 06:59 06:59 06:59 Intake Total 4618.0 1260 600 Output Total 1430 1025 Balance 3188.0 235 600 Result Diagrams: 04/28/18 05:04 04/28/18 05:04 Additional Labs: labs reviewed by me EKG Reviewed by me: Yes (Tele: NSR) Phys Exam - Physical Examination Constitutional: NAD HEENT: moist MMs Neck: supple Respiratory: clear to auscultation bilateral Cardiovascular: RRR Gastrointestinal: soft Neurological: moves all 4 limbs Psychiatric: normal affect Dx/Plan (1) Sepsis Code(s): A41.9 - SEPSIS, UNSPECIFIED ORGANISM Status: Acute Comment: Improving. Gram negative rods in blood culture from femoral line, continue ceftriaxone (2) Acute kidney failure Status: Acute Qualifiers: Acute renal failure type: unspecified Qualified Code(s): N17.9 - Acute kidney failure, unspecified Comment: Improving (3) NSTEMI (non-ST elevated myocardial infarction) Code(s): I21.4 - NON-ST ELEVATION (NSTEMI) MYOCARDIAL INFARCTION Status: Acute Comment: cardiology following (4) GI bleeding Code(s): K92.2 - GASTROINTESTINAL HEMORRHAGE, UNSPECIFIED Status: Chronic Qualifiers: GI bleed type/associated pathology: unspecified gastrointestinal hemorrhage type Qualified Code(s): K92.2 - Gastrointestinal hemorrhage, unspecified Comment: hemoglobin stable (5) HTN (hypertension) Code(s): I10 - ESSENTIAL (PRIMARY) HYPERTENSION Status: Chronic Qualifiers: Hypertension type: essential hypertension Qualified Code(s): I10 - Essential (primary) hypertension Comment: monitor vital signs, titrate antihypertensives as needed - Plan * . Review of Systems - Review of Systems Constitutional: weakness Respiratory: negative: Cough, Shortness of Breath, SOB with Excertion, Sputum, Wheezing Cardiovascular: negative: chest pain, palpitations, orthopnea, paroxysmal nocturnal dyspnea, edema, light headedness - Medications/Allergies Allergies/Adverse Reactions: Allergies Allergy/AdvReac Type Severity Reaction Status Date / Time No Known Allergies Allergy Unverified 04/24/18 21:51 Medications: Current Medications Acetaminophen (Tylenol) 650 mg MN Q4H PRN PRN Reason: Headache/Fever or Pain Ceftriaxone Sodium 1 gm/ (Sodium Chloride) 100 mls @ 200 mls/hr IVPB Q24HR [facility] Last Admin: 04/28/18 12:36 Dose: 100 mls Sodium Chloride (1/2 Normal Saline) 1,000 mls @ 75 mls/hr IV .[id number] [facility] Last Admin: 04/27/18 22:56 Dose: 1,000 mls Ondansetron HCl (Zofran) 4 mg IVP Q6H PRN PRN Reason: Nausea/Vomiting Pantoprazole Sodium (Protonix) 40 mg PO BID [facility] Last Admin: 04/28/18 08:03 Dose: 40 mg Sodium Chloride (Flush - Normal Saline) 10 ml IVF Q12HR [facility] Last Admin: 04/28/18 08:03 Dose: Not Given Sodium Chloride (Flush - Normal Saline) 10 ml IVF PRN PRN PRN Reason: Saline Flush
[2018-04-28] MEDS: Sodium Chloride 0.45% 1,000 ML IV SCH (16:36)
[2018-04-29] MEDS: Sodium Chloride 0.45% 1,000 ML IV SCH (05:28)
[2018-04-29 05:34] LABS: #Eosinphils 0.4 thou/uL (0.0-0.7); #Lymphocytes 1.9 thou/uL (1.20-3.40); #Monocytes 0.7 thou/uL (0.11-0.59); #Neutrophils 6.4 thou/uL (1.40-6.50); %Basophils 0.4 % (0.0-1.0); %Eosinophils 4.2 % (0.0-10.0); %Lymphocytes 19.8 % (21.0-51.0); %Monocytes 7.2 % (0.0-10.0); %Neutrophils 68.5 % (42.0-75.0); Hemoglobin 12.7 g/dL (14.0-18.0); Mean Corpuscular HGB CONC 35.8 g/dL (32.0-36.0); Mean Corpuscular Hemoglobin 34.5 pg (27.0-31.0); Mean Corpuscular Volume 96.4 fL (78.0-98.0); Mean Platelet Volume 9.5 fL (7.4-10.4); Platelet Count 56 thou/uL (130-400); RBC Distribution Width 12.9 % (11.5-14.5); Red Blood Cell (RBC) Count 3.68 mill/uL (4.70-6.10); White Blood Cell (WBC) Count 9.4 thou/uL (4.8-10.8)
[2018-04-29 05:38] LABS: Anion Gap 10 mmol/L (10-20); BUN (Urea Nitrogen) 14 mg/dL (8.4-25.7); Calc. Creatinine Clearance 50 mL/min (70-130); Carbon Dioxide 24 mmol/L (23-31); Chloride 113 mmol/L (98-107); Estimated GFR-MDRD 51; Glucose 98 mg/dL (83-110); Potassium 3.6 mmol/L (3.5-5.1); Sodium 143 mmol/L (136-145)
[2018-04-29] MEDS: cefTRIAXone\\ROCEPHIN 1 GM in Sodium Chloride 0.9% 100 ML IVPB SCH ×2 (08:04→08:05)
[2018-04-29] MEDS: Lisinopril 10 MG TAB PO SCH (10:33)
--- NOTE | 2018-04-29 13:59 | PRG ---
DATE OF SERVICE: 04/29/2018 The patient is doing better, had no acute complaints. PHYSICAL EXAMINATION: VITAL SIGNS: Temperature 97.8, pulse 66, blood pressure 172/80, O2 sat 93%. HEENT: Unremarkable. NECK: Some gurgling noises heard around his supraglottic area. LUNGS: Clear peripherally. CARDIAC: S1 and S2 regular. ABDOMEN: Soft. EXTREMITIES: No edema. LABORATORY DATA: White blood cell count 9.4, hematocrit 35.5, platelet count 56. Sodium 143, potass ium 3.6, chloride 111, CO2 of 24, BUN 14, creatinine 1.3, glucose 98. ASSESSMENT: 1. Status post heat related exhaustion. 2. Status post respiratory failure. 3. Mild rhabdomyolysis. 4. Thrombocytopenia. 5. Renal insufficiency which is improved with hydration. 6. Dilated aortic bulb. PLAN: 1. I think the patient would likely benefit from stopping his IV fluids, continue to increase activi ty. Again, he is going to need a CT of his chest or MRI/MRA of his chest to workup dilated aorta. O f note, this was not seen on echocardiogram. 2. For his thrombocytopenia, I think I would go ahead and stop the cephalosporin and continue to sarai nd his platelet count with serial labs.
--- NOTE | 2018-04-29 18:28 | PDOC.CTH ---
Cardiology Progress Note - Subjective Doing well. No new issues. - Objective Vital Signs Temp Pulse Resp BP BP Pulse Ox 04/29/18 18:14 75 18 91 L 04/29/18 16:00 98.2 F 56 L 12 177/90 H 93 L 04/29/18 15:39 96 04/29/18 15:35 86 12 04/29/18 11:51 98.9 F 54 L 16 169/91 H 91 L 04/29/18 10:33 172/88 H 04/29/18 08:10 97.8 F 66 16 93 L 04/29/18 08:00 97.8 F 66 16 172/88 H 93 L Admit Weight 195 lb 12.32 oz Weight 195 lb 12.32 oz 04/28/18 04/29/18 04/30/18 06:59 06:59 06:59 Intake Total 1260 900 560 Output Total 1025 Balance 235 900 560 - Physical Examination General/Neuro: alert & oriented x3, NAD Neck: no JVD present Lungs: unlabored respirations Heart: RRR Abdomen: NT/ND Extremities: other: (no edema.) - Telemetry Telemetry Rhythm: NSR - Labs Result Diagrams: 04/29/18 04:59 04/29/18 04:59 Troponin/CKMB CK-MB (CK-2) 4.7 ng/mL (0-6.6) 04/24/18 21:38 Troponin I 0.140 ng/mL (< 0.028) H 04/26/18 03:34 - Assessment/Plan 1. Elevated troponins, demand ischemia. 2. Possible heat exhaustion PLAN: - No intervention planned. - No new recs.
--- NOTE | 2018-04-29 21:46 | PDOC.PN ---
- Subjective Encounter Start Date: 04/29/18 Encounter Start Time: 10:00 Patient seen and examined by meKrista BROWNLEE. - Objective Resuscitation Status: Resuscitation Status FULL:Full Resuscitation MAR Reviewed: Yes Vital Signs & Weight: Vital Signs (12 hours) Temp Pulse Resp BP BP Pulse Ox 04/29/18 18:14 75 18 91 L 04/29/18 16:00 98.2 F 56 L 12 177/90 H 93 L 04/29/18 15:39 96 04/29/18 15:35 86 12 04/29/18 11:51 98.9 F 54 L 16 169/91 H 91 L 04/29/18 10:33 172/88 H Weight Admit Weight 195 lb 12.32 oz Weight 195 lb 12.32 oz Most Recent Monitor Data Heart Rate from ECG 53 NIBP 119/49 NIBP BP-Mean 97 Respiration from ECG 16 SpO2 98 I&O: 04/28/18 04/29/18 04/30/18 06:59 06:59 06:59 Intake Total 1260 900 560 Output Total 1025 Balance 235 900 560 Result Diagrams: 04/29/18 04:59 04/29/18 04:59 Phys Exam - Physical Examination Constitutional: NAD HEENT: PERRLA, moist MMs Neck: no nodes, no JVD, supple Respiratory: no wheezing, no rales Cardiovascular: RRR, no significant murmur, no rub Gastrointestinal: soft, non-tender, no distention Musculoskeletal: no edema, pulses present Neurological: non-focal, normal sensation, moves all 4 limbs Psychiatric: normal affect Skin: no rash Dx/Plan (1) Septicemia Code(s): A41.9 - SEPSIS, UNSPECIFIED ORGANISM Status: Acute Comment: Gram positive septecemia. Have started IV vanco antibiotics. 2D echo negative for vegetations. Cardiology have to decide if they want to do CARYL. Will repeat Blood cultures. (2) Acute kidney failure Status: Resolved Qualifiers: Acute renal failure type: unspecified Qualified Code(s): N17.9 - Acute kidney failure, unspecified Comment: Improving (3) NSTEMI (non-ST elevated myocardial infarction) Code(s): I21.4 - NON-ST ELEVATION (NSTEMI) MYOCARDIAL INFARCTION Status: Acute Comment: Due to demand ischemia. cardiology following (4) GI bleeding Code(s): K92.2 - GASTROINTESTINAL HEMORRHAGE, UNSPECIFIED Status: Chronic Qualifiers: GI bleed type/associated pathology: unspecified gastrointestinal hemorrhage type Qualified Code(s): K92.2 - Gastrointestinal hemorrhage, unspecified Comment: hemoglobin stable. f/u with GI outpt for EGD, colonoscopy (5) HTN (hypertension) Code(s): I10 - ESSENTIAL (PRIMARY) HYPERTENSION Status: Chronic Qualifiers: Hypertension type: essential hypertension Qualified Code(s): I10 - Essential (primary) hypertension Comment: monitor vital signs, titrate antihypertensives as needed - Plan * . See plan above. Review of Systems - Review of Systems Constitutional: negative: fever, chills, sweats, weakness, malaise, other Eyes: negative: Pain, Vision Change, Conjunctivae Inflammation, Eyelid Inflammation, Redness, Other ENT: negative: Ear Pain, Ear Discharge, Nose Pain, Nose Discharge, Nose Congestion, Mouth Pain, Mouth Swelling, Throat Pain, Throat Swelling, Other Respiratory: negative: Cough, Dry, Shortness of Breath, Hemoptysis, SOB with Excertion, Pleuritic Pain, Sputum, Wheezing Cardiovascular: negative: chest pain, palpitations, orthopnea, paroxysmal nocturnal dyspnea, edema, light headedness, other Gastrointestinal: negative: Nausea, Vomiting, Abdominal Pain, Diarrhea, Constipation, Melena, Hematochezia, Other Genitourinary: negative: Dysuria, Frequency, Incontinence, Hematuria, Retention , Other Musculoskeletal: negative: Neck Pain, Shoulder Pain, Arm Pain, Back Pain, Hand Pain, Leg Pain, Foot Pain, Other Skin: negative: Rash, Lesions, Abram, Bruising, Other Neurological: negative: Weakness, Numbness, Incoordination, Change in Speech, Confusion, Seizures, Other - Medications/Allergies Allergies/Adverse Reactions: Allergies Allergy/AdvReac Type Severity Reaction Status Date / Time No Known Allergies Allergy Unverified 04/24/18 21:51 Medications: Current Medications Acetaminophen (Tylenol) 650 mg AK Q4H PRN PRN Reason: Headache/Fever or Pain Albuterol/Ipratropium (Duoneb) 3 ml NEB [id number] [facility] Last Admin: 04/29/18 18:14 Dose: 3 ml Lisinopril (Zestril) 10 mg PO DAILY [facility] Last Admin: 04/29/18 10:33 Dose: 10 mg Ondansetron HCl (Zofran) 4 mg IVP Q6H PRN PRN Reason: Nausea/Vomiting Pantoprazole Sodium (Protonix) 40 mg PO BID [facility] Last Admin: 04/29/18 21:11 Dose: 40 mg Sodium Chloride (Flush - Normal Saline) 10 ml IVF Q12HR [facility] Last Admin: 04/29/18 21:11 Dose: 10 ml Sodium Chloride (Flush - Normal Saline) 10 ml IVF PRN PRN PRN Reason: Saline Flush
[2018-04-29] MEDS ORDERED: Vancomycin HCl 1.75 GM in Sodium Chloride 0.9% 500 ML IVPB SCH (23:00)
[2018-04-30 03:41] LABS: #Eosinphils 0.4 thou/uL (0.0-0.7); #Lymphocytes 2.4 thou/uL (1.20-3.40); #Monocytes 0.6 thou/uL (0.11-0.59); #Neutrophils 5.7 thou/uL (1.40-6.50); %Basophils 0.5 % (0.0-1.0); %Eosinophils 4.1 % (0.0-10.0); %Lymphocytes 26.4 % (21.0-51.0); %Monocytes 6.2 % (0.0-10.0); %Neutrophils 62.9 % (42.0-75.0); Hemoglobin 12.6 g/dL (14.0-18.0); Mean Corpuscular HGB CONC 35.9 g/dL (32.0-36.0); Mean Corpuscular Hemoglobin 34.6 pg (27.0-31.0); Mean Corpuscular Volume 96.4 fL (78.0-98.0); Mean Platelet Volume 9.4 fL (7.4-10.4); Platelet Count 54 thou/uL (130-400); RBC Distribution Width 12.9 % (11.5-14.5); Red Blood Cell (RBC) Count 3.64 mill/uL (4.70-6.10); White Blood Cell (WBC) Count 9.1 thou/uL (4.8-10.8)
[2018-04-30 03:53] LABS: Anion Gap 13 mmol/L (10-20); BUN (Urea Nitrogen) 12 mg/dL (8.4-25.7); Calc. Creatinine Clearance 49 mL/min (70-130); Calcium 8.4 mg/dL (7.8-10.44); Carbon Dioxide 23 mmol/L (23-31); Chloride 112 mmol/L (98-107); Estimated GFR-MDRD 49; Glucose 99 mg/dL (83-110); Potassium 3.5 mmol/L (3.5-5.1); Sodium 144 mmol/L (136-145)
[2018-04-30] MEDS: Lisinopril 10 MG TAB PO SCH (08:09)
--- NOTE | 2018-04-30 13:12 | PRG ---
DATE OF SERVICE: 04/30/2018 SUBJECTIVE: The patient feels better and wants to go home. OBJECTIVE: VITAL SIGNS: On exam, temperature is 98.5, pulse 60, respirations 20, O2 sat 96% on room air, blood pressure 166/92. HEENT: Unremarkable. NECK: No JVD. CHEST: Fairly clear. CARDIAC: S1 and S2, regular. ABDOMEN: Soft. EXTREMITIES: No edema. LABORATORY DATA: BUN is 12, creatinine 1.37. Sodium 144, potassium 3.5, chloride 112, CO2 of 23. W chasidy blood cell count 9.1, hematocrit 35.1, platelet count 54. ASSESSMENT: 1. Status post what looks like a heat-related illness. 2. Mild rhabdomyolysis. 3. Mildly elevated BUN and creatinine, which has resolved. 4. Dilated aortic bulb. PLAN: 1. Needs CT of the chest with contrast to work up for aneurysm. 2. Cephalosporins were stopped yesterday for thrombocytopenia. I think the patient can safely be of f antibiotics. I did note Dr. Gonzalez has been consulted.
[2018-04-30] MEDS ORDERED: hydrALAZINE 20 MG/ML VIAL SLOW IVP PRN (16:00)
--- NOTE | 2018-04-30 16:28 | CT ---
CT OF CHEST WITH IV CONTRAST AND 3D POST PROCESSING: History: Abnormal chest radiograph, 04-25-18. Exam to evaluate for aneurysmal dissection of the thoraci c aorta. FINDINGS: There is good contrast opacification of the thoracic aorta without evidence of aneurysmal dissection. No pericardial effusions are seen. There is a moderate right sided and small left sided pleural effu franko with adjacent atelectatic changes. NO pneumothoraces are identified. Tracheal bronchial tree is patent. There are degenerative changes of the visualized spine. There is free fluid adjacent to the l iver and spleen on the upper abdominal images. IMPRESSION: 1. No CT evidence of thoracic aorta aneurysm or dissection. 2. Bilateral pleural effusions, right larger than left. POS: [facility]
--- NOTE | 2018-04-30 18:37 | PDOC.PN ---
- Subjective Encounter Start Date: 04/30/18 Encounter Start Time: 11:20 Patient seen and examined. Sitting by the bedside in a chair. NAD. - Objective Resuscitation Status: Resuscitation Status FULL:Full Resuscitation MAR Reviewed: Yes Vital Signs & Weight: Vital Signs (12 hours) Temp Pulse Resp BP BP Pulse Ox 04/30/18 18:11 75 20 95 04/30/18 17:28 140/80 04/30/18 16:28 60 184/93 H 04/30/18 15:46 60 16 04/30/18 15:44 98.4 F 60 20 184/93 H 93 L 04/30/18 11:38 98.5 F 60 20 166/92 H 96 04/30/18 11:00 53 L 16 04/30/18 08:20 99.0 F 57 L 20 95 04/30/18 08:09 189/84 H 04/30/18 07:42 99.0 F 57 L 20 189/84 H 95 04/30/18 07:03 90 L 04/30/18 06:59 70 18 Weight Admit Weight 195 lb 12.32 oz Weight 195 lb 12.32 oz Most Recent Monitor Data Heart Rate from ECG 53 NIBP 119/49 NIBP BP-Mean 97 Respiration from ECG 16 SpO2 98 I&O: 04/29/18 04/30/18 05/01/18 06:59 06:59 06:59 Intake Total 900 1000 900 Balance 900 1000 900 Result Diagrams: 04/30/18 03:26 04/30/18 03:26 Phys Exam - Physical Examination Constitutional: NAD HEENT: PERRLA, moist MMs Neck: no JVD Respiratory: no wheezing, clear to auscultation bilateral Cardiovascular: RRR, no significant murmur, no rub Gastrointestinal: soft, non-tender, no distention Musculoskeletal: no edema Neurological: non-focal, normal sensation, moves all 4 limbs Psychiatric: normal affect Skin: no rash, normal turgor Dx/Plan (1) Thoracic aortic aneurysm Code(s): I71.2 - THORACIC AORTIC ANEURYSM, WITHOUT RUPTURE Status: Acute Comment: CT ordered to rule out thoracic aneurysm. Report shows that there is no aneurysm however there is pleural effusion. Right larger then left. Will give a touch of lasix 40 IV x1. will monitor patients creatinine closely since patient just received contrast. If patient is stable and creatinine stays at baseline we will potentially discharge patient in the AM (2) Pleural effusion Code(s): J90 - PLEURAL EFFUSION, NOT ELSEWHERE CLASSIFIED Status: Acute Comment: Gave lasix IV. will follow up morning BMP and examine patient clinically. If patient is stable and pulm clears the patient we will d/c pt home. (3) Septicemia Code(s): A41.9 - SEPSIS, UNSPECIFIED ORGANISM Status: Acute Comment: Per ID cultures are contaminant. Cleared from ID point of view to D/C. CT of chest ordered with contrast. Will follow up. will d/c antibiotics. (4) Acute kidney failure Status: Resolved Qualifiers: Acute renal failure type: unspecified Qualified Code(s): N17.9 - Acute kidney failure, unspecified Comment: Improved. will get BMP in the AM. If BMP is stable will d/c patient (5) NSTEMI (non-ST elevated myocardial infarction) Code(s): I21.4 - NON-ST ELEVATION (NSTEMI) MYOCARDIAL INFARCTION Status: Resolved Comment: stable (6) GI bleeding Code(s): K92.2 - GASTROINTESTINAL HEMORRHAGE, UNSPECIFIED Status: Chronic Qualifiers: GI bleed type/associated pathology: unspecified gastrointestinal hemorrhage type Qualified Code(s): K92.2 - Gastrointestinal hemorrhage, unspecified Comment: hemoglobin stable. f/u with GI outpt for EGD, colonoscopy (7) HTN (hypertension) Code(s): I10 - ESSENTIAL (PRIMARY) HYPERTENSION Status: Chronic Qualifiers: Hypertension type: essential hypertension Qualified Code(s): I10 - Essential (primary) hypertension Comment: monitor vital signs, titrate antihypertensives as needed - Plan * . Review of Systems - Review of Systems Constitutional: negative: fever, chills, sweats, weakness, malaise, other Eyes: negative: Pain, Vision Change, Conjunctivae Inflammation, Eyelid Inflammation, Redness, Other ENT: negative: Ear Pain, Ear Discharge, Nose Pain, Nose Discharge, Nose Congestion, Mouth Pain, Mouth Swelling, Throat Pain, Throat Swelling, Other Respiratory: negative: Cough, Dry, Shortness of Breath, Hemoptysis, SOB with Excertion, Pleuritic Pain, Sputum, Wheezing Cardiovascular: negative: chest pain, palpitations, orthopnea, paroxysmal nocturnal dyspnea, edema, light headedness, other Gastrointestinal: negative: Nausea, Vomiting, Abdominal Pain, Diarrhea, Constipation, Melena, Hematochezia, Other Genitourinary: negative: Dysuria, Frequency, Incontinence, Hematuria, Retention , Other Musculoskeletal: negative: Neck Pain, Shoulder Pain, Arm Pain, Back Pain, Hand Pain, Leg Pain, Foot Pain, Other Skin: negative: Rash, Lesions, Abram, Bruising, Other Neurological: negative: Weakness, Numbness, Incoordination, Change in Speech, Confusion, Seizures, Other - Medications/Allergies Allergies/Adverse Reactions: Allergies Allergy/AdvReac Type Severity Reaction Status Date / Time No Known Allergies Allergy Unverified 04/24/18 21:51 Medications: Current Medications Acetaminophen (Tylenol) 650 mg OR Q4H PRN PRN Reason: Headache/Fever or Pain Albuterol/Ipratropium (Duoneb) 3 ml NEB [id number] [facility] Last Admin: 04/30/18 18:11 Dose: 3 ml Hydralazine HCl (Apresoline) 10 mg SLOW IVP Q4H PRN PRN Reason: SBP>180 Last Admin: 04/30/18 16:28 Dose: 10 mg Lisinopril (Zestril) 10 mg PO DAILY [facility] Last Admin: 04/30/18 08:09 Dose: 10 mg Miscellaneous Medication (Pharmacy To Dose) 1 each IVPB PRN PRN PRN Reason: Pharmacy to dose Ondansetron HCl (Zofran) 4 mg IVP Q6H PRN PRN Reason: Nausea/Vomiting Pantoprazole Sodium (Protonix) 40 mg PO BID [facility] Last Admin: 04/30/18 08:10 Dose: 40 mg Sodium Chloride (Flush - Normal Saline) 10 ml IVF Q12HR [facility] Last Admin: 04/30/18 08:10 Dose: 10 ml Sodium Chloride (Flush - Normal Saline) 10 ml IVF PRN PRN PRN Reason: Saline Flush
[2018-04-30] MEDS ORDERED: Furosemide 40 MG/4 ML VIAL SLOW IVP SCH (18:45)
--- NOTE | 2018-04-30 19:22 | CON ---
DATE OF CONSULTATION: 04/30/2018 REASON FOR CONSULTATION: Bacteremia. HISTORY OF PRESENT ILLNESS: An 87-year-old with a history of new onset of general malaise, incontine nce and some slurred speech. In the admit note, it is stated that he had some form of hemiplegia. T he denied that they ever presented with focal weakness. On arrival, he was oriented then became a bit combative, had one episode of vomiting. His initial BP 106/63, heart rate 85, O2 sat 97%. On arrival, he became obtunded with worsening blood pressure. The vasopressors after IV fluids. Initi al white cell count 23,000, hemoglobin 14, platelets 137, pH 7.28, pCO2 41, pO2 140. Sodium 142, cre atinine 2.0, which is higher than his baseline. Troponin was 0.6. He was started on broad spectrum antimicrobial coverage. Chest x-ray demonstrated patchy bibasilar infiltrate and enlarged aortic arc h. He also had an abdomen and pelvis CT, which was not remarkable. He did have bibasilar atelectase s in lung regions. Echocardiogram showed EF 65%, otherwise normal findings. Blood cultures showed u p presumptive corynebacterium one out of two sets, likely contaminant. Currently, he is awake. He i s feeling much better. REVIEW OF SYSTEMS: He denies any headaches, no visual symptoms, sore throat, odynophagia, or dysphag ia. No focal neurological symptoms. His speech has returned to normal. No neck pain, no abdominal pain or diarrhea. No cough. Voiding without difficulty. PAST MEDICAL HISTORY: Hypertension. CURRENT MEDICATIONS: DuoNeb, Zestril, Zofran, Protonix, vancomycin. FAMILY HISTORY: Noncontributory. SOCIAL HISTORY: Noncontributory, never smoker. PHYSICAL EXAMINATION: GENERAL: He has no distress. VITAL SIGNS: T-max 99, blood 160/92, pulse 60, respirations 20, O2 sat 96%. GENERAL: Appears in no distress, oriented. SKIN: Shows peripheral IV access. He is voiding spontaneously without difficulty. No lymphadenopat hy. HEENT: Ocular movements conjugate. Pupils are equal. Oral cavity normal. NECK: Supple, no jugular vein distention. LUNGS: With symmetric clear breath sounds. HEART: S1, S2, regular rate. ABDOMEN: Soft, not distended. EXTREMITIES: No joint inflammatory activity. Pulses 1+ in dorsalis pedis. NEUROLOGIC: Plantar responses are flexure, oriented, follows commands. LABORATORY DATA: White cell count is at 9.1, hemoglobin 12.6, MCV 96, platelets 54,000. INR 1.1. S odium 144, creatinine 1.37 which is markedly improved from admission, bilirubin 1.6, AST and ALT norm al, alkaline phosphatase normal. CK 782, albumin 3.0. Urinalysis on arrival was 0-3 wbcs. IMAGING STUDIES: Shown above. DISCUSSION: Fairly unremarkable past medical history, now with altered mental status which appears t o be a heat stroke which has resolved now with no focal neurological findings. The bacteremia is lik gertrudis a contaminant and not a true bacteremia and I would recommend discontinuation of antimicrobial th erapy at this point in time. Thrombocytopenia, not yet explained. It could be related to the admiss ion and heparin-induced thrombocytopenia or the factors that led to admission. Chronic liver disease is not ruled out. I would check him for hepatitis A serology. The patient is going to have a CT to evaluate his aorta to see about the dilation noticed on plain films. Discontinue vancomycin.
--- NOTE | 2018-04-30 20:22 | PDOC.CTH ---
Cardiology Progress Note - Subjective no new issues. - Objective Vital Signs Temp Pulse Resp BP BP Pulse Ox 04/30/18 20:00 97.8 F 69 18 183/99 H 91 L 04/30/18 18:11 75 20 95 04/30/18 17:28 140/80 04/30/18 16:28 60 184/93 H 04/30/18 15:46 60 16 04/30/18 15:44 98.4 F 60 20 184/93 H 93 L 04/30/18 11:38 98.5 F 60 20 166/92 H 96 04/30/18 11:00 53 L 16 Admit Weight 195 lb 12.32 oz Weight 195 lb 12.32 oz 04/29/18 04/30/18 05/01/18 06:59 06:59 06:59 Intake Total 900 1000 900 Balance 900 1000 900 - Labs Result Diagrams: 04/30/18 03:26 04/30/18 03:26 Troponin/CKMB CK-MB (CK-2) 4.7 ng/mL (0-6.6) 04/24/18 21:38 Troponin I 0.140 ng/mL (< 0.028) H 04/26/18 03:34 - Assessment/Plan 1. Elevated troponins, demand ischemia. 2. Possible heat exhaustion PLAN: - No intervention planned. - No new recs.
[2018-05-01 05:26] LABS: Anion Gap 12 mmol/L (10-20); BUN (Urea Nitrogen) 12 mg/dL (8.4-25.7); Calc. Creatinine Clearance 46 mL/min (70-130); Calcium 8.6 mg/dL (7.8-10.44); Carbon Dioxide 27 mmol/L (23-31); Chloride 109 mmol/L (98-107); Estimated GFR-MDRD 48; Glucose 105 mg/dL (83-110); Sodium 145 mmol/L (136-145)
[2018-05-01] MEDS ORDERED: Potassium Chloride 20 MEQ TAB PO SCH (08:00)
--- NOTE | 2018-05-01 08:42 | PRG ---
DATE OF SERVICE: 05/01/2018 The patient is anxious to go home, says he feels okay. PHYSICAL EXAMINATION: VITAL SIGNS: His temperature is 98.8, pulse 67, respiration 20, O2 sat 91% on room air, blood pressu re 144/82. HEENT: Unremarkable. NECK: No JVD. CHEST: Clear anteriorly and posteriorly. CARDIAC: S1 and S2 regular. ABDOMEN: Soft. EXTREMITIES: No edema. LABORATORY DATA: Sodium 145, potassium 3, chloride 109, CO2 27, BUN 12, creatinine 1.4, glucose 105. A chest x-ray from this morning demonstrates bilateral small pleural effusions, improving pulmonary e william. CT of the chest yesterday demonstrated no evidence of an aortic aneurysm. ASSESSMENT: 1. No evidence of aortic aneurysm. 2. Likely transudative pleural effusion related to acute illness. PLAN: The patient may need supplemental oxygen at home, temporarily. He is cleared to go home from my standpoint. He will need a follow up x-ray in 3-4 weeks. The pleural effusions do not warrant th oracentesis at this time.
--- NOTE | 2018-05-01 09:20 | RAD ---
CHEST ONE VIEW: HISTORY: Pleural effusion. COMPARISON: CT from the prior day. FINDINGS: There are bilateral layering pleural effusions, larger on the right. Heart size is enlarged. Mild p ulmonary vascular congestion and pulmonary edema. No acute osseous abnormality. Heart size is enlarged. IMPRESSION: 1. Similar appearance of the moderate right and small left pleural effusions. 2. Cardiomegaly, pulmonary vascular congestion, and early edema. POS: [facility]
[2018-05-01] MEDS: Lisinopril 10 MG TAB PO SCH (09:22)
[2018-05-01 11:31] VITALS: BP 125/80; TEMP 99.2
--- NOTE | 2018-05-02 02:44 | DIS ---
On the day of discharge, the patient was seen and examined by me. The patient was stable. The patie nt did not have any complaints. The patient was ready to be discharged home. The patient was very h appy. The patient's son was at the bedside. The patient's son states that dad is 100% ready to go h ome. DISCHARGE DIAGNOSES: Pleural effusion, septicemia, acute kidney failure, non ST elevation myocardial infarction, gastrointestinal bleed, and hypertension. CONSULTS: Cardiology was consulted. GI was consulted. Infectious Diseases and Pulmonology. HOSPITAL COURSE: We have an 87-year-old male with no significant past medical history who was admitt ed after episode of being distressed when found in his bathtub. The patient was encephalopathic in t he ER, very combative. The patient was intubated in the ED for airway protection. Lab that was orde red showed that white count was , hemoglobin was 14, platelets of 137. INR was 1.1. Blood gas: A pH was 7.28, pCO2 of 41, pO2 of 140. Electrolytes: Sodium was 142, potassium was 3.9, chloride of 108, carbon dioxide of 13, anion gap of 25, BUN of 32, creatinine of 2.0 and the patient was admit heidi for acute encephalopathy. CT scan of the head was negative. The patient also had elevated tropo fer of 0.6, which was most likely secondary to mismatched ischemia. The patient was monitored for it and blood cultures were ordered, which showed contaminates upon further investigation, this was foun d to have pleural effusion and Lasix was given. The patient was also given antibiotics during the [facility]. DISCHARGE MEDICATIONS: Kindly refer to the electronic medical records for discharge. DISPOSITION: The patient was discharged home in good and stable condition.
== END 2018-05-01 13:52 | disposition home or self-care (01) | DRG 871 ==
LOC: ERS 21:24 → CCU 23:00 → 2SE 04-27 22:46
PROVIDERS: ADMIT Hospitalist; ATTEND Hospitalist
PROC: 5A1945Z Respiratory Ventilation, 24-96 Consecutive Hours (ICD-10-PCS; principal; 2018-04-24)
PROC: 0BH17EZ Insertion of Endotracheal Airway into Trachea, Via Natural or Artificial Opening (ICD-10-PCS; 2018-04-24)
PROC: 06HM33Z Insertion of Infusion Device into Right Femoral Vein, Percutaneous Approach (ICD-10-PCS; 2018-04-24)
DX: A41.9 Sepsis, unspecified organism (principal); G93.40 Encephalopathy, unspecified; R65.21 Severe sepsis with septic shock; J96.00 Acute respiratory failure, unspecified whether with hypoxia or hypercapnia; I21.4 Non-ST elevation (NSTEMI) myocardial infarction; K29.71 Gastritis, unspecified, with bleeding; N17.9 Acute kidney failure, unspecified; E87.2 Acidosis; M62.82 Rhabdomyolysis; J90 Pleural effusion, not elsewhere classified; I71.2 Thoracic aortic aneurysm, without rupture; T67.5XXA Heat exhaustion, unspecified, initial encounter; I10 Essential (primary) hypertension; D69.6 Thrombocytopenia, unspecified; Z79.1 Long term (current) use of non-steroidal anti-inflammatories (NSAID); X58.XXXA Exposure to other specified factors, initial encounter
CPT/HCPCS: 31500; 36415; 36416; 36556; 51702; 70450; 71045; 71275; 74176; 80048; 80053; 80076; 80202; 81001; 81003; 81015; 82330; 82550; 82553; 82803; 82805; 83605; 83735; 83880; 84484; 85018; 85025; 85610; 85730; 86850; 86900; 86901; 87040; 87086; 93005; 93010; 93306; 93880; 94002; 94003; 94640; 94760; 96365; 96366; 96367; 96374; 96375; 96376; A4216; C9113; G8978-GP-CI; G8979-GP-CI; G8980-GP-CI; J0360; J0696; J1940; J2354; J3010; J3370; J7050; J7620

== ENCOUNTER 2018-05-23 07:30 | Outpatient (CLI) | payer MEDICARE ==
--- NOTE | 2018-05-23 10:40 | ULT ---
HEPATIC ULTRASOUND WITH DUPLEX EVALUATION: INDICATIONS: Abnormal LFTs. TECHNIQUE: Ventura-scale, color Doppler, and spectral Doppler images were obtained in the right upper quadrant of t he abdomen, as well as the hepatic vasculature. FINDINGS: There is a coarse echotexture to the liver, suspicious for underlying chronic liver disease. No foca l hepatic lesion is evident. The spleen is enlarged, measuring 16 cm, with an associated accessory s pleen. The gallbladder is normal appearing. No sonographic Goncalves sign is reported. The common vargas e duct measures 2.4 mm. The pancreas is obscured by overlying bowel gas. The common bile duct measu res 2.7 mm. There is appropriate hepatopetal flow seen within the portal veins and hepatic artery. Appropriate flow is seen within the splenic artery and the hepatic veins. No free fluid is grossly i dentified. IMPRESSION: 1. Findings of chronic liver disease and splenomegaly. 2. Appropriate hepatopetal flow demonstrated. POS: [facility]
== END 2018-05-23 07:31 | disposition home or self-care (01) ==
LOC: ULT 07:30
PROVIDERS: ATTEND Internal Medicine Gastroenterology
DX: R94.5 Abnormal results of liver function studies (principal); D69.6 Thrombocytopenia, unspecified; R10.13 Epigastric pain; R68.89 Other general symptoms and signs; K76.9 Liver disease, unspecified; R16.1 Splenomegaly, not elsewhere classified
CPT/HCPCS: 76705

== ENCOUNTER 2018-07-27 13:40 | Inpatient (IN) | payer MEDICARE ==
[2018-07-27] MEDS ORDERED: Ondansetron ODT 4 MG TAB ONE (13:47)
[2018-07-27] MEDS ORDERED: Ondansetron PF 4 MG/2 ML Vial ONE (13:49)
[2018-07-27] MEDS ORDERED: Adacel (T-DAP) 0.5 ML VIAL ONE (14:39)
[2018-07-27 14:59] LABS: Hemoglobin 18.3 g/dL (14.0-18.0); Mean Corpuscular HGB CONC 32.9 g/dL (32.0-36.0); Mean Corpuscular Hemoglobin 31.9 pg (27.0-31.0); Mean Corpuscular Volume 96.9 fL (78.0-98.0); Mean Platelet Volume 10.9 fL (7.4-10.4); Platelet Count 94 thou/uL (130-400); RBC Distribution Width 12.8 % (11.5-14.5); Red Blood Cell (RBC) Count 5.74 mill/uL (4.70-6.10); White Blood Cell (WBC) Count 20.5 thou/uL (4.8-10.8)
--- NOTE | 2018-07-27 15:09 | RAD ---
PORTABLE CHEST 1 VIEW: Date: 07/27/18 Time: 1455 hours HISTORY: Syncope. FINDINGS: Comparison made with exam of 05/01/18. The heart size is mildly enlarged. The aorta is tortuous. The lungs are expanded without focal areas of consolidation, pneumothorax, ruben pulmonary edema, or pleural effusions. There are degenerative c hanges in the right shoulder joint. IMPRESSION: No acute process. POS: [facility]
[2018-07-27 15:16] LABS: Band 18 % (5-11); Lymphocytes 16 % (21-51); MDiff Complete? YES; Monocytes 6 % (0-10); Neutrophil 53 % (42-75); PLT Morphology Comment Appears Decreased; Reactive Lymphocytes 7 % (0-10)
[2018-07-27 15:26] LABS: ALT (SGPT) 20 U/L (8-55); AST (SGOT) 27 U/L (5-34); Albumin 4.4 g/dL (3.4-4.8); Alkaline Phosphatase 69 U/L (40-150); Anion Gap 10 mmol/L (10-20); BUN (Urea Nitrogen) 21 mg/dL (8.4-25.7); Bilirubin, Total 1.2 mg/dL (0.2-1.2); Calc. Creatinine Clearance 0 mL/min (70-130); Calcium 9.4 mg/dL (7.8-10.44); Carbon Dioxide 29 mmol/L (23-31); Chloride 103 mmol/L (98-107); Estimated GFR-MDRD 45; Globulin 2.9 g/dL (2.4-3.5); Glucose 139 mg/dL (83-110); Potassium 4.2 mmol/L (3.5-5.1); Protein, Total 7.3 g/dL (5.8-8.1); Sodium 138 mmol/L (136-145)
[2018-07-27 15:31] LABS: CKMB 2.4 ng/mL (0-6.6); Troponin I Less than 0.010 ng/mL (< 0.028)
--- NOTE | 2018-07-27 15:33 | CT ---
BRAIN CT WITHOUT IV CONTRAST: HISTORY: An 87-year-old male with a history of syncope. FINDINGS: There appears to be a small focal scalp wound over the left posterior parietal region. Bilateral atr ophy and chronic white matter ischemic change. No mass or midline shift. No intra- or extraaxial he morrhage. Mild ethmoid sinus mucosal changes. The mastoids are clear. No significant acute intracr anial process. No significant change intracranially from 04/24/2018. POS: [facility]
[2018-07-27 16:58] LABS: Bilirubin Negative (Negative); Blood, Urine Negative (Negative); Clarity CLEAR (Clear); Glucose, Urine (Dipstick) Negative (Negative); Leukocyte Negative (Negative); Nitrite Negative (Negative); Protein, Urine (Dipstick) 30 mg/dL (Neg-Trace); Specific Gravity, Urine 1.015 (1.002-1.036); Urobilinogen 0.2 mg/dL (0.2-1.0); pH, Urine 6.5 (5.0-9.0)
[2018-07-27 17:03] LABS: Bacteria/HPF None Seen HPF (None Seen); Pathc Cast-AUWi Flag 2.32 (0-2.49); RBC/HPF 0-3 HPF (0-3); Squamous Epithelial 0-3 HPF (0-3); WBC/HPF 0-3 HPF (0-3)
[2018-07-27 17:08] LABS: Hyaline Casts/LPF 0-3 HYALINE CAST LPF (0-3 Hyaline); Renal Epithelial None Seen HPF (0-3); Transitional Epithelial NONE SEEN HPF (0-3)
[2018-07-27 18:35] LABS: Troponin I Less than 0.010 ng/mL (< 0.028)
[2018-07-27 20:32] VITALS: BMI 27.3
[2018-07-27 22:16] LABS: Troponin I Less than 0.010 ng/mL (< 0.028)
[2018-07-28] MEDS ORDERED: Acetaminophen 325 MG TAB PO PRN (01:55)
[2018-07-28] MEDS ORDERED: Senokot S 8.6-50 MG TAB PO PRN (01:55)
[2018-07-28] MEDS ORDERED: Piperacillin/Tazobactam 3.375 GM in Sodium Chloride 0.9% 100 ML IVPB SCH (02:00)
[2018-07-28] MEDS ORDERED: Vancomycin HCl 1 GM in Premix Bag 1 BAG IVPB SCH (02:00)
--- NOTE | 2018-07-28 02:17 | HP ---
PRIMARY CARE PROVIDER: Erica Coleman MD CHIEF COMPLAINT: Syncope. HISTORY OF PRESENT ILLNESS: Mr. Arreola is a pleasant 87-year-old gentleman who was seen at [facility] on 07/28/2018. He was hospitalized at this facility from 04/24 through of this year for acute encephalopathy. He was intubated during that hospitalization for airway prot ection. He also had elevated troponin of 0.6, most likely secondary to demand ischemia. He reports that he has annual gouty attacks. He reports having gout earlier today. He took a dose o f colchicine/probenecid, which was dispensed to him in 03/2015. Shortly medication, he started having a cough. He reports twitching all over the body. He felt warm. He then had an episode of l oss of consciousness and hit the back of his head on the floor. His was in the next room and re ports that if he lost consciousness, it was for a very brief period of time. He denies any fevers or chills. He denies any dysuria. He denies any abdominal pain. REVIEW OF SYSTEMS: All other systems were reviewed and found to be negative. PAST MEDICAL HISTORY: Gout and hypertension. PAST SURGICAL HISTORY: None. SOCIAL HISTORY: The patient denies tobacco use, alcohol use, or recreational drug use. CODE STATUS: I discussed his code status. He is FULL CODE. FAMILY HISTORY: He denies any family history of premature coronary artery disease. ALLERGIES: No known drug allergies. CURRENT MEDICATIONS: Lisinopril 10 mg daily and colchicine p.r.n. PHYSICAL EXAMINATION: GENERAL: Mr. Arreola is awake and alert, not in acute distress. VITAL SIGNS: Blood pressure is 116/58, pulse 71, respiratory rate 24, and oxygen saturation 98% on r oom air. He is afebrile. EYES: No scleral icterus. No conjunctival pallor. ENT: Moist mucosal membranes. No oropharyngeal erythema or exudates. NECK: Supple, nontender, trachea is midline. RESPIRATORY: Accessory muscles of breathing are not active. Chest wall movements are symmetric bila terally. LUNGS: Clear to auscultation without wheeze, rhonchi, or crepitations. CARDIOVASCULAR: S1 and S2 are heard, regular. Peripheral pulses palpable. No carotid bruit, no per icardial rub. ABDOMEN: Soft, nontender, bowel sounds heard. No hepatomegaly, no splenomegaly. NEUROLOGIC: Cranial nerves II through XII are intact, deep tendon reflexes are 2+. MUSCULOSKELETAL: Power is 5/5 in all 4 extremities. SKIN: Laceration over the occipital scalp. LYMPHATIC: No cervical lymphadenopathy. PSYCHIATRIC: Normal mood, normal affect. Patient is oriented to person, place, and time. LABORATORY DATA: Mr. Arreola's labs and investigations were reviewed. I reviewed his electrocardiogr am, which shows normal sinus rhythm, no ST changes to suggest an acute coronary artery syndrome. I a lso reviewed his chest x-ray, which does not show any pulmonary infiltrates. He also had a noncontra st CT scan of the brain, which did not show any significant acute intracranial process. He has leuko cytosis with 20,500 white cells, of which 53% are neutrophils and 18% are bands, elevated hemoglobin of 18.3, thrombocytopenia with platelet count of 94,000. He has a history of chronic thrombocytopeni a, normal sodium, normal potassium, elevated creatinine of 1.48, last known creatinine 1.3 on 018, normal blood urea nitrogen and an unremarkable liver profile. Troponin I is negative x3. Urina lysis is negative for leukocyte esterase and nitrite. ASSESSMENT AND PLAN: Mr. Arreola is a pleasant 87-year-old gentleman who was seen at [facility] on 07/28/2018. His problem list includes: 1. Sepsis: Mr. Arreola is presenting with sepsis, source of infection, most likely in the blood stre am. He will be started on broad spectrum antibiotics. We will await blood culture results. 2. Syncope: Etiology is unclear, could be related to sepsis. I will monitor him on telemetry. He recently had a cardiac workup including 2D echocardiogram. 3. Hypertension: We will monitor vital signs and titrate antihypertensives as needed. 4. Chronic kidney disease: Appears to be stable. 5. Thrombocytopenia: Appears stable as well. Many thanks for allowing me to participate in your patient's care. Please feel free to contact me wi th any questions or concerns. LEVEL OF RISK: High. LEVEL OF COMPLEXITY: High.
[2018-07-28] MEDS ORDERED: Ondansetron PF 4 MG/2 ML Vial SLOW IVP PRN (03:29)
[2018-07-28 04:33] LABS: Anion Gap 13 mmol/L (10-20); BUN (Urea Nitrogen) 23 mg/dL (8.4-25.7); Calc. Creatinine Clearance 45 mL/min (70-130); Carbon Dioxide 26 mmol/L (23-31); Chloride 106 mmol/L (98-107); Estimated GFR-MDRD 45; Glucose 101 mg/dL (83-110); Potassium 4.3 mmol/L (3.5-5.1); Sodium 141 mmol/L (136-145)
[2018-07-28 05:14] LABS: Band 16 % (5-11); Eosinophils 7 % (0-10); Hemoglobin 14.8 g/dL (14.0-18.0); Lymphocytes 21 % (21-51); MDiff Complete? YES; Mean Corpuscular HGB CONC 33.7 g/dL (32.0-36.0); Mean Corpuscular Hemoglobin 32.5 pg (27.0-31.0); Mean Corpuscular Volume 96.4 fL (78.0-98.0); Mean Platelet Volume 11.1 fL (7.4-10.4); Monocytes 3 % (0-10); Neutrophil 53 % (42-75); PLT Morphology Comment Appears Decreased; Platelet Count 84 thou/uL (130-400); RBC Distribution Width 12.7 % (11.5-14.5); RBC Morphology Normal; Red Blood Cell (RBC) Count 4.56 mill/uL (4.70-6.10); White Blood Cell (WBC) Count 12.8 thou/uL (4.8-10.8)
[2018-07-28] MEDS: Heparin 5,000 UNITS/ML VIAL SC SCH ×3 (08:29→21:00)
[2018-07-28] MEDS: Piperacillin/Tazobactam 3.375 GM in Sodium Chloride 0.9% 100 ML IVPB SCH ×3 (09:32→22:19)
--- NOTE | 2018-07-28 13:18 | PDOC.PN ---
- Subjective Encounter Start Date: 07/28/18 Encounter Start Time: 10:00 Subjective: f/u on admission for syncope, elevated WBC, sepsis criteria -: Patient reports feeling much better today -: Denies any complaints - Objective Resuscitation Status: Resuscitation Status FULL:Full Resuscitation Vital Signs & Weight: Vital Signs (12 hours) Temp Pulse Resp BP Pulse Ox 07/28/18 11:52 98.0 F 72 18 108/53 L 95 07/28/18 07:10 98.6 F 71 14 110/53 L 95 07/28/18 03:10 98.1 F 66 15 111/54 L 97 Weight Weight 88.949 kg I&O: 07/27/18 07/28/18 07/29/18 06:59 06:59 06:59 Intake Total 668 Output Total 400 Balance 268 Result Diagrams: 07/28/18 03:43 07/28/18 03:43 Phys Exam - Physical Examination Constitutional: NAD HEENT: PERRLA, moist MMs Neck: no nodes, no JVD Respiratory: no wheezing, no rhonchi, clear to auscultation bilateral Cardiovascular: RRR, no significant murmur Gastrointestinal: soft, non-tender, positive bowel sounds Musculoskeletal: no edema, pulses present Neurological: non-focal, normal sensation, moves all 4 limbs Lymphatic: no nodes Psychiatric: normal affect, A&O x 3 Deviation from normal: Healing laceration to posterior scalp, reports mild tenderness to palpation Dx/Plan (1) Syncope and collapse Code(s): R55 - SYNCOPE AND COLLAPSE Status: Acute (2) Sepsis Code(s): A41.9 - SEPSIS, UNSPECIFIED ORGANISM Status: Acute Qualifiers: Sepsis type: sepsis due to unspecified organism Qualified Code(s): A41.9 - Sepsis, unspecified organism (3) HTN (hypertension) Code(s): I10 - ESSENTIAL (PRIMARY) HYPERTENSION Status: Chronic Qualifiers: Hypertension type: essential hypertension Qualified Code(s): I10 - Essential (primary) hypertension Comment: monitor vital signs, titrate antihypertensives as needed - Plan cont current plan of care, plan discussed w/ family, continue antibiotics -: Will monitor labs, continue antibiotics -: Will change to full admit * .
[2018-07-28] MEDS: Bacitracin Zinc 1 Packet TOP SCH ×2 (15:09→21:00)
[2018-07-28] MEDS ORDERED: Latanoprost 0.005% Ophth Soln 2.5 ml Bottle EA EYE SCH (21:00)
[2018-07-28] MEDS: DorzolamidE/Timolol 2%/0.5% Ophth Soln 10 ml Bottle EA EYE SCH (21:01)
[2018-07-29] MEDS ORDERED: Vancomycin HCl 1 GM in Premix Bag 1 BAG IVPB SCH (02:00)
[2018-07-29] MEDS: Piperacillin/Tazobactam 3.375 GM in Sodium Chloride 0.9% 100 ML IVPB SCH ×2 (03:52→09:41)
[2018-07-29 08:23] LABS: #Basophils 0.1 thou/uL (0.0-0.2); #Eosinphils 0.5 thou/uL (0.0-0.7); #Lymphocytes 3.1 thou/uL (1.20-3.40); #Monocytes 0.6 thou/uL (0.11-0.59); #Neutrophils 4.8 thou/uL (1.40-6.50); %Basophils 0.7 % (0.0-1.0); %Eosinophils 5.3 % (0.0-10.0); %Lymphocytes 34.3 % (21.0-51.0); %Monocytes 6.4 % (0.0-10.0); %Neutrophils 53.3 % (42.0-75.0); Hemoglobin 13.5 g/dL (14.0-18.0); Mean Corpuscular HGB CONC 34.4 g/dL (32.0-36.0); Mean Corpuscular Hemoglobin 33.2 pg (27.0-31.0); Mean Corpuscular Volume 96.8 fL (78.0-98.0); Mean Platelet Volume 9.9 fL (7.4-10.4); Platelet Count 56 thou/uL (130-400); RBC Distribution Width 12.5 % (11.5-14.5); Red Blood Cell (RBC) Count 4.08 mill/uL (4.70-6.10); White Blood Cell (WBC) Count 8.9 thou/uL (4.8-10.8)
[2018-07-29 08:38] LABS: ALT (SGPT) 36 U/L (8-55); AST (SGOT) 39 U/L (5-34); Albumin 3.9 g/dL (3.4-4.8); Alkaline Phosphatase 59 U/L (40-150); Anion Gap 7 mmol/L (10-20); BUN (Urea Nitrogen) 20 mg/dL (8.4-25.7); Bilirubin, Total 1.5 mg/dL (0.2-1.2); Calc. Creatinine Clearance 42 mL/min (70-130); Carbon Dioxide 30 mmol/L (23-31); Chloride 108 mmol/L (98-107); Estimated GFR-MDRD 42; Globulin 2.4 g/dL (2.4-3.5); Glucose 115 mg/dL (83-110); Potassium 4.3 mmol/L (3.5-5.1); Protein, Total 6.3 g/dL (5.8-8.1); Sodium 141 mmol/L (136-145)
[2018-07-29 08:40] VITALS: BP 135/61; TEMP 98.6
[2018-07-29] MEDS ORDERED: Lisinopril 10 MG TAB PO SCH (09:00)
[2018-07-29] MEDS: DorzolamidE/Timolol 2%/0.5% Ophth Soln 10 ml Bottle EA EYE SCH (09:27)
[2018-07-29] MEDS: Heparin 5,000 UNITS/ML VIAL SC SCH (09:27)
[2018-07-29] MEDS: Bacitracin Zinc 1 Packet TOP SCH (09:28)
--- NOTE | 2018-07-29 20:09 | DIS ---
DATE OF ADMISSION: 07/28/2018 DATE OF DISCHARGE: 07/29/2018 PRIMARY CARE PHYSICIAN: Dr. Erica Coleman. CONSULTATNTS: None. PROCEDURES: The patient had a brain CT that showed a small focal scalp wound left posterior parietal region, bilateral atrophy and chronic white matter ischemic change. No mass or midline shift, no acute intracranial process. Patient had a chest x-ray, no acute process on findings. DIAGNOSES: 1. Syncope, etiology is unclear. 2. Hypertension. 3. Chronic kidney disease. 4. Thrombocytopenia. 5. Gout. REVIEW OF SYSTEMS: The patient was examined by me on day of discharge. All systems were reviewed and found to be negative. PHYSICAL EXAMINATION: VITAL SIGNS: Temperature 98.4, pulse 65, respirations 18, blood pressure 149/67 , pulse ox 95% on room air. GENERAL: Mr. Arreola is awake, alert, sitting in a chair, in no acute distress, anxious to go home. EYES: Pupils are equal and reactive to light. Extraocular muscles are intact. ENT: Moist mucosal membranes. NECK: Supple, nontender. Trachea is midline. RESPIRATORY: Clear to auscultation without wheeze, rhonchi or crepitus. No accessory muscle breathing are active. Chest wall movements are symmetrical bilaterally. ABDOMEN: Soft, nontender. Bowel sounds heard x4. NEUROLOGIC: No focal deficits are noted. MUSCULOSKELETAL: Range of motion x4. Pulses sensation equal x4. SKIN: Laceration noted over the left posterior parietal closed with doreen. LYMPHATIC: No cervical lymphadenopathy. PSYCHIATRIC: Normal mood and affect is normal. The patient is oriented to person, place, and time. HOSPITAL COURSE: Mr. Arreola is a pleasant 87-year-old gentleman who was seen at the [facility] ER on 07/28/2018. He has a history of being hospitalized at this facility from 04/24/2018 through 05/01/2018 for acute encephalopathy. He was intubated at that time for airway protection. Today, he reports that he has annual gouty attacks. He reports having a gout attack earlier today in his right big toe. He took a dose of his colchicine w/ probenecid, which was dispensed to him in 03/2015. He reports he takes this medication very intermittently. He reports as soon as he took the medication, he started having a cough. He reports slight twitch all over his body. He felt warm, had a syncopal episode and hit the back of his head on the floor. His reports finding him and he was out for a very short period of time. He denies any fevers or chills. He denies any dysuria. He denies any abdominal pain. Patient reports that he vomited x1 once he is in the emergency room and then once he vomited, he reports feeling back to normal and has felt this way during his hospitalization. The patient was admitted to the observation unit with suspected sepsis, was given IV antibiotics and lab work. Patient has denied any complaints during his hospitalization, was anxious to go home today. His white blood cell count has normalized. Blood cultures x2 were negative. Discharge plan discussed with Dr. Lopez who agreed to discharge, patient was discharged home. ALLERGIES: The patient has no known allergies. DISCHARGE MEDICATIONS: The patient will be discharged home on his home medications. He takes timolol 1 drop each eye b.i.d., latanoprost 1 drop each eye at bedtime, lisinopril 10 mg p.o. daily. We added bacitracin small amount t.i.d. to scalp laceration. CONDITION: The patient's condition is stable. DISCHARGE INSTRUCTIONS: The patient will be discharged to home. Patient is instructed to follow up with Dr. Coleman within 1 week and have doreen removed in 7-10 days. [facility]SWORTH HOSPITALArjun
== END 2018-07-29 12:29 | disposition home or self-care (01) | DRG 872 ==
LOC: ERS 13:40 → 2SW 17:00 → OBSVTOIN 07-28 13:15
PROVIDERS: ADMIT Internal Medicine; ATTEND Internal Medicine
DX: A41.9 Sepsis, unspecified organism (principal); N18.9 Chronic kidney disease, unspecified; I12.9 Hypertensive chronic kidney disease with stage 1 through stage 4 chronic kidney disease, or unspecified chronic kidney disease; D69.6 Thrombocytopenia, unspecified; M10.9 Gout, unspecified
CPT/HCPCS: 12001; 36415; 70450; 71045; 80048; 80053; 81003; 81015; 82553; 84484; 85007; 85025; 85027; 87040; 90471; 90715; 93005; 96374; J1644; J2405; J2543; J3370; J7050; Q0162

== ENCOUNTER 2019-02-13 09:49 | Outpatient (CLI) | payer MEDICARE ==
--- NOTE | 2019-02-13 11:17 | ULT ---
HEPATIC SONOGRAM WITH DUPLEX EVALUATION: 02/13/19 HISTORY: Cirrhosis. FINDINGS: Gallbladder has a normal appearance without evidence of stones. Common duct is 0.3 cm. Liver shows no focal abnormalities. Diffuse heterogeneous echotexture. No free fluid. The spleen measures up to 16.0 cm. Good co9lor and spectral Doppler flow within the hepatic and splen ic arteries. Portal venous flow is towards the liver. Hepatic venous flow is towards the IVC. IMPRESSION: 1. No evidence of gallstones or biliary obstruction. 2. Appropriate directional portal venous flow. 3. Moderate splenomegaly. No other findings of portal venous hypertension are apparent. POS: TPC
== END 2019-02-13 09:50 | disposition home or self-care (01) ==
LOC: ULT 09:49
PROVIDERS: ATTEND Physician Assistant Medical
DX: K74.69 Other cirrhosis of liver (principal); R16.1 Splenomegaly, not elsewhere classified
CPT/HCPCS: 76705

== ENCOUNTER 2019-08-07 09:24 | Outpatient (CLI) | payer MEDICARE ==
--- NOTE | 2019-08-07 10:53 | ULT ---
HEPATIC ULTRASOUND WITH DUPLEX EVALUATION: HISTORY: Cirrhosis. COMPARISON: 02/13/2019 FINDINGS: The liver has a diffuse heterogeneous echotexture without focal mass or intrahepatic ductal dilatatio n. This is similar to that seen on the previous exam. The spleen is enlarged, measuring 16 cm in length and is stable. The gallbladder and pancreas are nor mal. The common duct measures 3 mm in diameter. No free fluid is seen in the right upper quadrant. Flow in the hepatic portal and splenic vasculature is normal with normal spectral wave-forms. IMPRESSION: 1. Stable examination. 2. Splenomegaly. POS: OFF
== END 2019-08-07 09:25 | disposition home or self-care (01) ==
LOC: ULT 09:24
PROVIDERS: ATTEND Physician Assistant Medical
DX: K74.69 Other cirrhosis of liver (principal); K52.9 Noninfective gastroenteritis and colitis, unspecified; K62.5 Hemorrhage of anus and rectum; R16.1 Splenomegaly, not elsewhere classified
CPT/HCPCS: 76705